=== PATIENT | female | born 1965 | race Two or more races ===

== ENCOUNTER 2023-09-10 09:51 | Outpatient (REF) | payer OTHER, SELFPAY ==
--- NOTE | 2023-09-10 10:53 | MHC.AU.HA3 ---
Hearing Instrument Follow-Up- Binaural Date of Visit: 09/10/23 Right Ear: Roland, Model, Color, Serial Number: Oticon OPN 2 miniRITE SN: [id number] Barrow Worker Repair Warranty: 02/12/2021 Barrow Worker Loss and Damage Warranty: 02/13/2020 Battery Size: 312 Roof Fitter/Slim Tube: 2/85 Earmold/Dome/CShell/SlimTip:Acrylic Canal Lock MicroMold SN: [id number] Type of Wax Guard: ProWax on MicroMold; miniFit on administrative coordinator Dispensed By: [facility] Date of Fitting: Per Oticon, December 2017 Left Ear: Roland, Model, Color, Serial Number: Oticon OPN 2 miniRITE SN: [id number] Barrow Worker Repair Warranty: 02/12/2021 Barrow Worker Loss and Damage Warranty: 02/13/2020 Battery Size: 312 Roof Fitter/Slim Tube: 2/85 Earmold/Dome/CShell/SlimTip: Acrylic Canal Lock MicroMold SN: [id number] Type of Wax Guard: ProWax on MicroMold; miniFit on administrative coordinator Dispensed By: [facility] Date of Fitting: Per Oticon, December 2017 Follow-Up Summary: Portia was a previous patient at [facility] and the audiology clinic at [facility]. She has decided to transfer care here. She is hoping to pursue new hearing aids due to the age of her current pair. Batteries reportedly only lasting 3-4 days and left hearing aid has intermittent static. Discussed process, starting with doctor's order from PCP for hearing test. In the meantime, cleaned both hearing aids and ear molds. Replaced four wax guards (two on molds, two on receivers). Vacuumed microphones. Ran through dehumidifier. Listening check demonstrated hearing aids amplifying clearly - no static noted. Portia will request doctor's order for updated hearing test and previous records will be requested from [facility]. Recommendations: Hearing instrument follow-up or maintenance as needed. Please contact our clinic with any questions or concerns. Diagnosis Code(s): Primary Diagnosis: H90.3 Bilateral Sensorineural Hearing Loss Signature: Provider: Sherif Edwards, [facility]
== END 2023-09-10 09:52 | disposition home or self-care (01) ==
LOC: HO.HAP 09:51
PROVIDERS: Visit Provider Internal Medicine
DX: Z46.1 Encounter for fitting and adjustment of hearing aid (principal); H90.3 Sensorineural hearing loss, bilateral
CPT/HCPCS: 92593; 99499

== ENCOUNTER 2023-12-10 09:35 | Outpatient (REF) | payer OTHER, SELFPAY ==
[2023-12-10 09:57] LABS: MANUAL DIFF FLAG NO
[2023-12-10 10:13] LABS: Basophils Percent Auto 0.2 % (0-2); Eosinophils Absolute Auto 0.2 X10*3/uL (0.0-0.4); Eosinophils Percent Auto 3.3 % (0-4); Hematocrit 43.4 % (37.0-47.0); Hemoglobin 14.7 g/dl (12.0-16.0); Imm Gran Abs Auto 0.03 X10*3/uL (0.00-0.03); Imm Gran Pct Auto 0.5 % (0.0-0.4); Lymphocytes Absolute Auto 1.5 X10*3/uL (1.2-4.9); Lymphocytes Percent Auto 25.3 % (20-40); Mean Corpuscular HGB Conc 33.9 g/dl (31.0-35.0); Mean Corpuscular Hemoglobin 30.1 pg (27.0-33.0); Mean Corpuscular Volume 88.9 fL (80.0-98.0); Monocytes Absolute Auto 0.6 X10*3/uL (0.1-1.2); Monocytes Percent Auto 9.4 % (2-11); Neutrophils Absolute Auto 3.7 x10*3/uL (2.0-8.3); Neutrophils Percent Auto 61.3 % (45-73); Platelet Count 224 X10*3/uL (160-400); Red Blood Count 4.88 X10*6/uL (4.20-5.50); Red Cell Distribution Width 13.2 % (11.0-16.0)
[2023-12-10 11:09] LABS: Anion Gap 10 (12-20); Blood Urea Nitrogen 13 mg/dL (9-16); Calcium 10.4 mg/dL (8.4-10.2); Carbon Dioxide 25 mmol/L (22-29); Chloride 109 mmol/L (96-108); Estimated Glomerular Filt Rate > 60; Glucose Random 155 mg/dL (60-115); Potassium 4.2 mmol/L (3.3-5.1); Sodium 140 mmol/L (135-145)
[2023-12-10 11:28] LABS: T4 Thyroxine 5.6 ug/dL (4.5-12.0); Thyroid Stimulating Hormone 2.02 uIU/mL (0.32-4.0)
[2023-12-10 11:36] LABS: Folate 9.5 ng/mL (> or = 4.0); Vitamin B12 443 pg/mL (200-900)
== END 2023-12-10 09:36 | disposition home or self-care (01) ==
LOC: HO.LAB 09:35
PROVIDERS: Visit Provider Registered Nurse
DX: G31.84 Mild cognitive impairment of uncertain or unknown etiology (principal)
CPT/HCPCS: 36415; 80048; 82607; 82746; 84436; 84443; 85025

== ENCOUNTER 2023-12-16 15:33 | Outpatient (REF) | payer OTHER, SELFPAY ==
--- NOTE | 2023-12-17 09:57 | MHC.AU.HA1 ---
Hearing Aid Evaluation Date of Visit: 12/16/23 Historical Information: Description of Hearing: Borderline normal sloping to moderately severe sensorineural hearing loss, bilateral. Current personal amplification information, if applicable: Oticon Opn2 miniRITE 312 with acrylic earmolds. Summary: Seen for evaluation. Current hearing aids are six years old. Has been having trouble with static and intermittent function, not hearing as well as she should be with them anymore. Evaluation shows stable hearing. New technology recommended. Pt. would like to be able to connect with her iPhone for phone calls. Interested in rechargeable, has been frustrated with shorter battery life as her hearing aids have aged. Would like to continue using same style of earmold. Impressions taken without incidence Au. Hearing Aid Prescription: Based on the individual?s shared listening needs, communication environments, dexterity, desire for connectivity, and personal preferences, the following prescription for amplification has been made: Right ear: Make, Model, Color: Oticon Real 2 R, chroma beige Battery Size: Rechargeable Disposal Worker/Slim Tube: 2/85 Type of Earmold/Dome/CShell/SlimTip: Acrylic Canal Lock MicroMold Left ear: Make, Model, Color: Oticon Real 2 R, chroma beige Battery Size: Rechargeable Disposal Worker/Slim Tube: 2/85 Type of Earmold/Dome/CShell/SlimTip: Acrylic Canal Lock MicroMold Plan of Care: Patient wishes to purchase hearing aids as prescribed Action Taken/Action Needed: Earmold Impressions Taken Medical Clearance to be requested from PCP/ENT Hearing Instrument Fitting to be scheduled when materials arrive Primary Diagnosis: H90.3 Bilateral Sensorineural Hearing Loss Signature: Provider: Sherif Smith, [facility]
== END 2023-12-16 15:34 | disposition home or self-care (01) ==
LOC: HO.SH 15:33
PROVIDERS: Visit Provider Internal Medicine
DX: Z01.118 Encounter for examination of ears and hearing with other abnormal findings (principal); Z46.1 Encounter for fitting and adjustment of hearing aid; H90.3 Sensorineural hearing loss, bilateral
CPT/HCPCS: 92557; 92591; V5275

== ENCOUNTER 2024-01-16 15:11 | Outpatient (REF) | payer OTHER, SELFPAY ==
--- NOTE | ~2024-01-16 | CT_ITS ---
CT head/brain wo IV con CLINICAL INFORMATION: Reason for Exam MCI COMPARISON: No prior CT scan available for comparison. TECHNIQUE: Department standard protocol. This CT examination was performed using dose optimization techniques as appropriate, variously including the following: *Automated exposure control *Adjustment of mA and/or kV according to patient size (this includes techniques or standardized protocols for targeted exams where dose is matched to indication/reason for exam; i.e. extremities or head) *Use of iterative reconstruction technique DLP: 707 mGy-cm FINDINGS: CEREBRAL HEMISPHERES: There is no evidence of intra-axial or extra-axial mass, hemorrhage or acute infarct. BRAIN PARENCHYMA: Normal avalos-white matter differentiation. SUBDURAL SPACE: No bleed. BASAL GANGLIA AND PINEAL GLAND: Unremarkable VENTRICLES: Symmetric and normal in size. CEREBELLUM AND BRAINSTEM: No space-occupying mass, hemorrhage or acute infarct. CEREBELLOPONTINE ANGLES: No lesion found. ORBITS: No intraorbital mass. VESSELS: Unremarkable SKULL BASE: Unremarkable INCLUDED SINUSES AT SKULL BASE: Clear SKULL AND SKIN: No fracture or bone lesion found. CT/CT head/brain wo IV con IMPRESSION: No CT evidence of intracranial space-occupying mass, bleed or infarct.
== END 2024-01-16 15:12 | disposition home or self-care (01) ==
LOC: HO.CT 15:11
PROVIDERS: Visit Provider Registered Nurse
DX: G31.84 Mild cognitive impairment of uncertain or unknown etiology (principal)
CPT/HCPCS: 70450

== ENCOUNTER 2024-02-06 10:03 | Outpatient (REF) | payer OTHER, SELFPAY ==
--- NOTE | 2024-02-06 12:39 | MHC.AU.HA2 ---
Hearing Instrument Fitting- Adult- Binaural Date of Visit: 02/06/24 Hearing Instruments Dispensed: Right Ear: Make, Model, Color, Serial Number: Oticon Real 2 R, chroma beige S#[id number] [address] Justice Repair Warranty: 02/21/[address] [employer] Loss and Damage Warranty: 02/21/2027 [facility] Service Plan: 02/05/25 Battery Size: Rechargeable Die Stamping Press Operator/Slim Tube: 2/85 Earmold/Dome/CShell/SlimTip: RITE mold hard minifit MicroMold S#[id number] Warranty 05/09/2024 Type of Wax Guard: ProWax on MicroMold; miniFit on railroad dispatcher Left Ear: Make, Model, Color, Serial Number: Oticon Real 2 R, chroma beige S#[id number] [address] Justice Repair Warranty: 02/21/[address] Loss and Damage Warranty: 02/21/2027 [facility] Service Plan: 02/05/25 Battery Size: Rechargeable Die Stamping Press Operator/Slim Tube: 2/85 Earmold/Dome/CShell/SlimTip: RITE mold hard minifit S#[id number] Warranty 05/09/2024 Type of Wax Guard: ProWax on MicroMold; miniFit on railroad dispatcher Accessories/Assistive Technology: Oticon minirite instructional design technologist S#[id number] Warranty 02/21/2027 Summary of Fitting: Fit with and oriented to binaural Oticon Real 2 R HAs with acrylic canal lock micromolds. Verified to [facility] Adult targets. Feedback ran. Reviewed charging, maintenance, precautions. Previous user. Paired with iPhone. Cleaned her old hearing aids and earmolds, changed wax guards, listening check positive. Recommendations: Recommendations: Hearing instrument care and maintenance were discussed and practiced. The instrument(s) were paired to the patient's smartphone. A hearing instrument follow-up was scheduled. Diagnosis Code(s): Primary Diagnosis: H90.3 Bilateral Sensorineural Hearing Loss Signature: Provider: Sherif Smith, [facility]
== END 2024-02-06 10:04 | disposition home or self-care (01) ==
LOC: HO.HAP 10:03
PROVIDERS: Visit Provider Internal Medicine
DX: Z46.1 Encounter for fitting and adjustment of hearing aid (principal); H90.3 Sensorineural hearing loss, bilateral
CPT/HCPCS: V5011; V5020; V5160; V5261; V5264

== ENCOUNTER 2024-02-20 09:44 | Outpatient (REF) | payer OTHER, SELFPAY ==
--- NOTE | 2024-02-20 13:13 | MHC.AU.HA3 ---
Hearing Instrument Follow-Up- Binaural Date of Visit: 02/20/24 Right Ear: Make, Model, Color, Serial Number: Oticon Real 2 R, chroma beige S#[id number] [employer]employment [employer] Hearing Officer Repair Warranty: 02/21/2027 Unemployment [employer] Hearing Officer Loss and Damage Warranty: 02/21/2027 [facility] Service Plan: 02/05/25 Battery Size: Rechargeable Mattress And Boxsprings Supervisor/Slim Tube: 2/85 Earmold/Dome/CShell/SlimTip:RITE mold hard minifit MicroMold S#[id number] Warranty 05/09/2024 Type of Wax Guard: ProWax Dispensed By: [facility] Date of Fittin02/06/24 Left Ear: Make, Model, Color, Serial Number: Oticon Real 2 R, chroma beige S#[id number] Unemployment Insurance Hearing Officer Repair Warranty: 02/21/2027 Unemployment Insurance Hearing Officer Loss and Damage Warranty: 02/21/2027 [facility] Service Plan: 02/05/25 Battery Size: Rechargeable Mattress And Boxsprings Supervisor/Slim Tube: 2/85 Earmold/Dome/CShell/SlimTip: RITE mold hard minifit S#[id number] Warranty 05/09/2024 Type of Wax Guard: ProWax on MicroMold Dispensed By: [facility] Date of Fittin02/06/24 Follow-Up Summary: Here for follow up. Reports that she is generally happy with the new hearing aids. Concerns are- would like them louder overall, own voice still feels different than she is used to, boomy, in her own head. Increased gain 3 steps overall. Increased gain 2 dB for soft and moderate low frequencies as recommended by Oticon for own voice complaint. Improvement reported. Portia noted these slim tips aren't as long as her old ones. She reports they stay in her ears and she hasn't had any issues with feedback. Advised if she prefers the fit of her old ones we could send these out with new impressions while in remake warranty period. She is going to take some time to continue getting used to these, scheduled additional follow up so we can address any issues before end of remake warranty period if needed. Recommendations: Recommendations: An additional follow-up was scheduled to monitor progress. Diagnosis Code(s): Primary Diagnosis: H90.3 Bilateral Sensorineural Hearing Loss Signature: Provider: Sherif Smith, [facility]
== END 2024-02-20 09:45 | disposition home or self-care (01) ==
LOC: HO.HAP 09:44
PROVIDERS: Visit Provider Internal Medicine
DX: Z13.89 Encounter for screening for other disorder (principal)

== ENCOUNTER 2024-04-16 08:29 | Outpatient (REF) | payer OTHER, SELFPAY ==
--- NOTE | 2024-04-16 09:04 | MHC.AU.HA3 ---
Hearing Instrument Follow-Up- Binaural Date of Visit: 04/16/24 Right Ear: Make, Model, Color, Serial Number: Oticon Real 2 R, chroma beige S#[id number] Pharmacy Consultant Repair Warranty: 02/21/2027 Pharmacy Consultant Loss and Damage Warranty: 02/21/2027 [facility] Service Plan: 02/05/25 Battery Size: Rechargeable Elementary Classroom Teacher/Slim Tube: 285 Earmold/Dome/CShell/SlimTip:RITE mold hard minifit MicroMold S#[id number] Warranty 05/09/2024 Type of Wax Guard: ProWax Dispensed By: [facility] Date of Fittin02/06/24 Left Ear: Make, Model, Color, Serial Number: Oticon Real 2 R, chroma beige S#[id number] Pharmacy Consultant Repair Warranty: 02/21/2027 Pharmacy Consultant Loss and Damage Warranty: 02/21/2027 [facility] Service Plan: 02/05/25 Battery Size: Rechargeable Elementary Classroom Teacher/Slim Tube: 285 Earmold/Dome/CShell/SlimTip: RITE mold hard minifit S#[id number] Warranty 05/09/2024 Type of Wax Guard: ProWax on MicroMold Dispensed By: [facility] Date of Fittin02/06/24 Follow-Up Summary: Here for follow up. Accompanied by her son today. Reports things feel too loud since last adjustment, gets tinny distortion with some speech. Still feels earmolds are too short. Adjusted gain re: complaints. Impressions taken for earmold remakes without incidence Au. Impressions in hold drawer. Portia will return next week to have her old slim tips put on these aids so we can send slim tips out for remake. Must get to [employer] by 05/09. Recommendations: Recommendations (Other): Return as scheduled. Diagnosis Code(s): Primary Diagnosis: H90.3 Bilateral Sensorineural Hearing Loss Signature: Provider: Sherif Smith, [facility]
== END 2024-04-16 08:30 | disposition home or self-care (01) ==
LOC: HO.HAP 08:29
PROVIDERS: Visit Provider Internal Medicine
DX: Z13.89 Encounter for screening for other disorder (principal)

== ENCOUNTER 2024-04-30 10:15 | Outpatient (REF) | payer OTHER, SELFPAY ==
--- NOTE | 2024-04-30 11:16 | MHC.AU.HA3 ---
Hearing Instrument Follow-Up- Binaural Date of Visit: 04/30/24 Right Ear: Make, Model, Color, Serial Number: Oticon Real 2 R, chroma beige S#[id number] Lime Sludge Mixer Repair Warranty: 02/21/2027 Lime Sludge Mixer Loss and Damage Warranty: 02/21/2027 [facility] Service Plan: 02/05/25 Battery Size: Rechargeable Metal Cut Off Saw Tender/Slim Tube: 2/85 Earmold/Dome/CShell/SlimTip:RITE mold hard minifit MicroMold S#[id number] Warranty 05/09/2024 Type of Wax Guard: ProWax Dispensed By: [facility] Date of Fittin02/06/24 Left Ear: Make, Model, Color, Serial Number: Oticon Real 2 R, chroma beige S#[id number] Lime Sludge Mixer Repair Warranty: 02/21/2027 Lime Sludge Mixer Loss and Damage Warranty: 02/21/2027 [facility] Service Plan: 02/05/25 Battery Size: Rechargeable Metal Cut Off Saw Tender/Slim Tube: 285 Earmold/Dome/CShell/SlimTip: RITE mold hard minifit S#[id number] Warranty 05/09/2024 Type of Wax Guard: ProWax on MicroMold Dispensed By: [facility] Date of Fittin02/06/24 Follow-Up Summary: Portia is here with her old micro molds to be put on her new hearing aids while she waits for earmold remake. Portia noted aids feel imbalance, noting that her left feels blocked. Increased gain slightly for left aid, improvement reported. Impressions were taken at last visit, sending impressions and molds to [employer] for remake. Recommendations: Recommendations: Patient will be contacted when materials have arrived. Diagnosis Code(s): Primary Diagnosis: H90.3 Bilateral Sensorineural Hearing Loss Signature: Provider: Sherif Smith, [facility]
== END 2024-04-30 10:16 | disposition home or self-care (01) ==
LOC: HO.HAP 10:15
PROVIDERS: Visit Provider Internal Medicine
DX: Z13.89 Encounter for screening for other disorder (principal)

== ENCOUNTER 2024-05-27 08:30 | Outpatient (REF) | payer OTHER, SELFPAY ==
--- NOTE | 2024-05-27 10:27 | MHC.AU.HA3 ---
Hearing Instrument Follow-Up- Binaural Date of Visit: 05/27/24 Right Ear: Make, Model, Color, Serial Number: Oticon Real 2 R, chroma beige S#[id number] And Drying Supervisor Cooking Casing Repair Warranty: 02/21/2027 And Drying Supervisor Cooking Casing Loss and Damage Warranty: 02/21/2027 [facility] Service Plan: 02/05/25 Battery Size: Rechargeable Webbing Weaver/Slim Tube: 285 Earmold/Dome/CShell/SlimTip:RITE mold hard minifit MicroMold S#[id number] Warranty 05/09/2024 Type of Wax Guard: ProWax Dispensed By: [facility] Date of Fittin02/06/24 Left Ear: Make, Model, Color, Serial Number: Oticon Real 2 R, chroma beige S#[id number] And Drying Supervisor Cooking Casing Repair Warranty: 02/21/2027 And Drying Supervisor Cooking Casing Loss and Damage Warranty: 02/21/2027 [facility] Service Plan: 02/05/25 Battery Size: Rechargeable Webbing Weaver/Slim Tube: 285 Earmold/Dome/CShell/SlimTip: RITE mold hard minifit S#[id number] Warranty 05/09/2024 Type of Wax Guard: ProWax on MicroMold Dispensed By: [facility] Date of Fittin02/06/24 Follow-Up Summary: Dispensed remake earmolds. Improved fit reported. When taking Portia's old earmolds off of her new hearing aids the gasket that holds the telegraph office manager in the mold came apart on the right one. Likely due to age and deterioration of materials. Recommended ordering a replacement pair of earmolds to go on her back up aids. Ordered duplicates of her back up molds. Recommendations: Recommendations: Patient will be contacted when materials have arrived. Recommendations (Other): Remind Portia to bring her back up aids to the EMF appointment. Diagnosis Code(s): Primary Diagnosis: H90.3 Bilateral Sensorineural Hearing Loss Signature: Provider: Sherif Smith, [facility]
== END 2024-05-27 08:31 | disposition home or self-care (01) ==
LOC: HO.HAP 08:30
PROVIDERS: Visit Provider Internal Medicine
DX: Z13.89 Encounter for screening for other disorder (principal)

== ENCOUNTER 2024-06-07 10:21 | Outpatient (REF) | payer OTHER, SELFPAY ==
--- NOTE | 2024-06-07 11:29 | MHC.AU.HA3 ---
Hearing Instrument Follow-Up- Binaural Date of Visit: 06/07/24 Right Ear: Make, Model, Color, Serial Number: Oticon Real 2 R, chroma beige S#[id number] Lead Business Systems Analyst Repair Warranty: 02/21/2027 Lead Business Systems Analyst Loss and Damage Warranty: 02/21/2027 [facility] Service Plan: 02/05/25 Battery Size: Rechargeable Product Lister/Slim Tube: 2/85 Earmold/Dome/CShell/SlimTip:RITE mold hard minifit MicroMold S#[id number] Warranty 09/15/2024 Type of Wax Guard: ProWax Dispensed By: [facility] Date of Fittin02/06/24 Left Ear: Make, Model, Color, Serial Number: Oticon Real 2 R, chroma beige S#[id number] Lead Business Systems Analyst Repair Warranty: 02/21/2027 Lead Business Systems Analyst Loss and Damage Warranty: 02/21/2027 [facility] Service Plan: 02/05/25 Battery Size: Rechargeable Product Lister/Slim Tube: 285 Earmold/Dome/CShell/SlimTip: RITE mold hard minifit S#[id number] Warranty 09/15/2024 Type of Wax Guard: ProWax on MicroMold Dispensed By: [facility] Date of Fittin02/06/24 Follow-Up Summary: Dispensed earmolds for Portia's back up hearing aids. Good fit reported. Portia reports the remake earmolds on her Real hearing aids are working well for her. Recommendations: Recommendations: Hearing instrument follow-up or maintenance as needed. Diagnosis Code(s): Primary Diagnosis: H90.3 Bilateral Sensorineural Hearing Loss Signature: Provider: Sherif Smith, [facility]
== END 2024-06-07 10:22 | disposition home or self-care (01) ==
LOC: HO.HAP 10:21
PROVIDERS: Visit Provider Internal Medicine
DX: Z46.1 Encounter for fitting and adjustment of hearing aid (principal); H90.3 Sensorineural hearing loss, bilateral
CPT/HCPCS: V5264

== ENCOUNTER 2025-03-16 10:03 | Outpatient (AMB) | payer OTHER, SELFPAY ==
--- NOTE | 2025-03-16 10:07 | MHC.OFFVIS ---
Intake Visit Reasons: 6month migraine Allergies codeine Allergy (Unknown, Verified 03/16/25 10:08) Unknown Medication List - Last Reconciled 03/16/25 by Lorena Coronado CNP amitriptyline 10 mg PO BEDTIME dulaglutide (Trulicity) 0.75 mg subcut QWEEK lisinopril 5 mg PO DAILY metformin ER 500 mg PO DAILY topiramate 100 mg PO DAILY HPI Comments Details: She was doing okay. Headaches have been okay. May get headache if she misses dose of medication. Memory has been stable, can be forgetful at times. Puts reminders in phone and writes out shopping list. Uses GPS when driving to places she goes infrequently for security reasons, has not gotten lost. 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 Sleep was okay, using CPAP. She was under some stress. She has 2 sons, an almost 18-year-old who is a senior in high school and 20-year-old. Noticed she was becoming more forgetful starting around 2021, needing to keep lists and having to write things down. Can go months without migraines. She was getting frequent migraine headaches, however, if she takes her topiramate 100 mg a day regularly she does not get the migraine headache. If she skips it, she starts to get some withdrawal and tingling in the headaches come back. In addition to the migraines, she has almost daily headaches several times a day with throbbing ARTHUR in the temples lasting 2 hrs. Uses Tylenol. These are more tension-type headaches. She uses CPAP at night for obstructive sleep apnea and sleeps through the night. No triggers identified. [facility] Medical History (Updated 03/16/25 @ 10:12 by Lorena Coronado CNP) Diabetes Vertigo JOSE on CPAP Hypertension Review of Systems Const Denies chills, Denies daytime sleepiness, Denies difficulty sleeping, Denies fatigue, Denies fever(s), Denies frequent falls, Reports headache(s), Denies increased appetite, Denies poor appetite, Denies snoring, Denies weakness, Denies weight gain and Denies weight loss Eyes Denies loss of vision ENT Denies vertigo, Denies dizziness, Reports headache(s) and Reports neck pain Card Denies chest pain at rest, Denies chest pain with activity, Denies syncope, Denies leg edema, Denies palpitations, Denies dyspnea and Denies dyspnea on exertion Resp Denies cough, Denies dyspnea, Denies dyspnea on exertion and Denies snoring GI Denies abdominal pain, Denies constipation, Denies heartburn, Denies diarrhea and Denies nausea Denies urinary frequency, Denies urinary incontinence and Denies urinary urgency Musc Denies abnormal gait, Reports back pain, Reports myalgias, Denies arthralgias, Reports neck pain, Denies numbness and Denies tingling Neuro Denies abnormal gait, Denies vertigo, Denies dizziness, Denies syncope, Denies frequent falls, Reports headache(s), Denies lack of coordination, Denies loss of vision, Reports memory loss, Denies numbness, Denies Other visual disturbances, Denies restless legs, Denies seizure-like activity, Denies tingling, Denies paresthesias, Denies tremor(s) and Denies weakness Psych Denies anxiety, Denies depression, Denies auditory hallucinations, Reports memory loss and Denies visual hallucinations Endo Denies fatigue and Denies palpitations Physical Exam Const Other: General Appearance:? normal, in no acute distress. Heart:? S1, S2 normal, no murmurs. Lungs:? clear anteriorly and posteriorly. Musculoskeletal:? normal. Extremities:? no edema. Psych:? alert, as below. Neuro Other: Abnormal Neurological Findings:?MMSE 29/30. Mental Status: alert, as below. Cranial Nerves: Pupils are equal, round, and reactive to light. External ocular muscles are intact. Visual singh are full, no ptosis. Face is symmetrical, no facial weakness or droop. Facial sensations are normal. Tongue protrudes in midline. Palate elevates symmetrically. Shoulder shrugging is normal Motor Examination: Normal muscle tone, bulk and strength. No atrophy or fasciculations. No drift of the extended upper extremities. DTR 2+. Plantars are flexor. Sensory Exam: Normal light touch, temperature, pinprick, vibration, and joint-position sensations. Rhomberg sign is absent. Coordination: No ataxia. No titubation. Gait Exam: Within normal limits. Cerebellar Signs: [id number] is okay. Extrapyramidal System: No tremor, rigidity with normal facial expressions. No bradykinesia. No bradyphrenia. Normal arm swing and posture. No propulsion or retropulsion. Speech: Normal. MMSE Level of Consciousness: Alert. Orientation: Knows correct year, month, date, day and season. Knows correct city, county and state. Knows correct location and floor. Registration: Able to register 3 objects. Attention: Serial 7's performed accurately to 65 (with some difficulty). Recall: Able to recall 2 out of 3 objects. Language: Normal spontaneous speech, fluency, repetition, naming, comprehension, reading, and writing. Total Score: 29/30. Assessment & Plan Assessment & Plan (1) Migraine: Code(s): G43.909 - Migraine, unspecified, not intractable, without status migrainosus Category: Medical Qualifiers: Migraine type: unspecified Status migrainosus presence: without status migrainosus Intractability: not intractable Qualified Code(s): G43.909 - Migraine, unspecified, not intractable, without status migrainosus Plan: Continue topiramate 100mg 1 tablet at bedtime. (2) Tension headache: Code(s): G44.209 - Tension-type headache, unspecified, not intractable Category: Medical Plan: Continue amitriptyline 10mg 1 tablet at bedtime. (3) MCI (mild cognitive impairment): Code(s): G31.84 - Mild cognitive impairment of uncertain or unknown etiology Category: Medical Plan: Stay physically and socially active. Medications: New topiramate 100 mg PO BEDTIME 90 tabs 1RF 90 days amitriptyline 10 mg PO BEDTIME 90 tabs 1RF 90 days Coding Level of Care Code Est Pt Level 4 (50101) Diagnoses Migraine without status migrainosus, not intractable, unspecified migraine type G43.909 Migraine type: unspecified Status migrainosus presence: without status migrainosus Intractability: not intractable Tension headache G44.209 MCI (mild cognitive impairment) G31.84
--- OUTSIDE RECORDS SUMMARY | 2025-03-16 12:17 | XMS_ITS | Clinical Summary ---
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 4 Active loratadine (CLARITIN) 10 mg tablet Take 1 tablet (10 mg total) by mouth 1 (one) time each day. 3 Active amitriptyline (ELAVIL) 10 mg tablet Take 1 tablet (10 mg total) by mouth at bedtime. 1 Active topiramate (TOPAMAX) 100 mg tablet at bedtime. 0 Active Trulicity 0.75 mg/0.5 mL pen injector injection INJECT 0.5 ML (0.75 MG) SUBCUTANEOUSLY EVERY 7 DAYS 12 mL 1 5 Active lisinopriL (PRINIVIL,ZEST RIL) 5 mg tablet Take 1 tablet by mouth once daily 90 tablet 5 Active metFORMIN XR (GLUCOPHAGE-XR ) 500 mg 24 hr tablet Take 1 tablet (500 mg total) by mouth 1 (one) time each day. Do not crush, chew, or split. 90 each 1 Active Active Problems Problem Noted Date Diagnosed Date Diabetes mellitus type 2 wit h neurological manifestations ([facility] [place], [facility] V28) 06/06/2024 Elevated LFTs 03/12/2023 Severe obesity (BMI 35.0-39. 9) with comorbidity ([facility] V24, [facility] V28) 04/15/2022 Hemorrhoids 12/17/2021 Microalbuminuria 12/14/2021 Trigger finger, right middle finger 11/09/2021 Rotator cuff tendinitis, left 11/09/2021 Acute recurrent cystitis 04/23/2021 Overview (05/04/2024): [facility] urology JOSE (obstructive sleep apnea) 04/25/2017 Uses hearing aid 06/26/2015 Migraines 09/19/2014 DM (diabetes mellitus), type 2 with renal complications ([facility] V24, [facility] V28) 05/31/2013 BPPV (benign paroxysmal positional vertigo) 10/22 Allergic rhinitis 11/25/2005 Bilateral carpal tunnel syndrome 10/16/2005 History of kidney stones Resolved Problems Problem Noted Date Diagnosed Date Resolved Date Hypertensive disorder 09/18/20102023 Encounters Date Type Department Care Team Description 02/01/2025 Telephone Adult Medicine [address] [phone] Phyllis Mcintyre LPN 01/13/2025 9:45 AM EDT Office Visit Adult Medicine [address] [phone] Mago Manriquez MD Type 2 diabetes mellitus with diabetic microalbuminuria, without long-term current use of insulin ([facility] V24, [facility] V28) (Primary Dx); Microalbuminuria; Allergic rhinitis due to other allergic trigger, unspecified seasonality 01/10/2025 Lab Requisition [facility] - Main Lab [address] [facility] [place] [address] Poli Wayne MD Urinary tract infection, site not specified; Acute cystitis with hematuria from Last 3 Months Immunizations Name Administration Dates Next Due Influenza Quadravalent, MDCK , 0.5ml, preservative free (Flucelvax) 6mo and older 04/15/2022 Influenza Quadravalent, MDCK , 0.5ml, with preservative (Flucelvax) 6mo and older 04/03/2018,04/25/2017 Influenza Quadrivalent, 0.5m l, preservative free (Fluarix; FluLaval; Fluzone) ages 6mo and older (Afluria) 3yo and older 05/05/2023,04/24/2021,02/25/2020,04/19 Influenza trivalent, recombi nant, 0.5mL, preservative free (Flublok) 9yo and older 05/12/2024 Influenza trivalent, with pr eservative (Fluzone; Afluria) 6mo and older 04/04/2016,03/03/2015,05/11/2014,04/20,03/03/2012,07/04/2011,03/30/2007 Influenza, Unspecified 04/23/2021 Pneumococcal polysaccharide 23 valent (Pneumovax 23) 2yo and older 12/13/2021 Td Tetanus diptheria (Tdvax) 7yo and older 12/13/2021 Td, Unspecified 12/03/2000 Tdap Tetanus diptheria acell ular pertussis (Boostrix; Adacel) 7yo and older 12/04/2010,12/03/2000 Zoster recombinant (Shingrix ) 19yo and older 04/13/2024,02/12/2024 Surgical History Surgery Date Site/Laterality Comments SECTION CHOLECYSTECTOMY BREAST LUMPECTOMY WRIST SURGERY 05/22/12 left wrist arthro and pinning BREAST BIOPSY Left lt breast bx neg SCREENING MAMMOGRAM 10/05/2024 Bilateral TONSILLECTOMY COLONOSCOPY 11/16/2024 Medical History Medical History Date Comments Carpal tunnel syndrome 10/16/2005 Historical Medical DX 02/16/2002 ASCUS on P ap smear HTN (hypertension) Uses hearing aid 06/26/2015 Acute recurrent cystitis 04/23/2021 [facility] urology History of kidney stones 04/23/2021 Microalbuminuria 12/14/2021 Hyperlipidemia Elevated liver enzymes DM (diabetes mellitus), type 2 with renal complications ([facility] [place], [facility] V28) 05/31/2013 Hemorrhoids 12/17/2021 Severe obesity (BMI 35.0-39. 9) with comorbidity ([facility] V24, [facility] V28) 04/15/2022 Migraines 09/19/2014 JOSE (obstructive sleep apnea) 04/25/2017 Trigger finger, right middle finger 11/09/2021 Allergic rhinitis 11/25/2005 Diabetes mellitus type 2 wit h neurological manifestations ([facility] V24, [facility] V28) 06/06/2024 Migraine GERD (gastroesophageal reflux disease) Family History Medical History Relation Name Comments Hypertension Brother 1 Bipolar disorder Brother 2 coma since 2012, cardiac arrest after tylenol OD Diabetes Father HTN heart problem Maternal Grandfather Diabetes Maternal Grandmother HTN Diabetes Mother HTN, migraine, osteoporosis, thyroid issue old age Paternal Grandfather old age Paternal Grandmother Hypertension Sister 1 2 sisters Thyroid disease Sister 2 2 sisters w/ thyroid disorder CABG Uncle 1 Stroke Uncle 2 Breast cancer Neg Hx Colon cancer Neg Hx Ovarian cancer Neg Hx Uterine cancer Neg Hx Relation Name Status Comments Brother 1 Alive Brother 2 Alive Father Alive Maternal Grandfather (Age 80s) Maternal Grandmother (Age 92) Mother Alive Paternal Grandfather (Age 90s) Paternal Grandmother (Age 90s) Sister 1 Alive Sister 2 Uncle 1 Uncle 2 Social History Tobacco Use Types Packs/Day Years Used Date Smoking Tobacco: Never Smokeless Tobacco: Never Tobacco Cessation:Counseling Given: Not Answered Alcohol Use Standard Drinks/Week Comments Yes 0 (1 standard drink = 0.6 oz pur e alcohol) Housing Instability Answer Date Recorde d Are you worried that in the next 2 months you may not have stable housing? No 07/04/2024 Food Access & Nutrition Answer Date Rec orded Do you have access to a vari ety of food including fruits and vegetables? Yes 07/04/2024 Access to Healthcare Answer Date Record ed Within the last 3 months, marya w many times did you visit the emergency department for your medical care? 1 07/04/2024 Health Literacy Answer Date Recorded How often do you need to hav e someone help you when you read instructions, pamphlets, or other written material from your doctor or pharmacy? Never 07/04/2024 Caregiver: How often do you need to have someone help you when you read instructions, pamphlets, or other written material from your doctor or pharmacy? Not on file 07/04/2024 Transportation Answer Date Recorded Has the lack of transportati on kept you from meetings, work, or from getting things needed for daily living? No Has the lack of transportati on kept you from medical appointments or from getting medications? No 07/04/2024 Social Isolation Answer Date Recorded How often do you feel lonely or isolated from th ose around you? Never 07/04/2024 Food Risk Answer Date Recorded Within the past 12 months we worried whether our food would run out before we got money to buy more. Never true 07/04/2024 Within the past 12 months th e food we bought just didn't last and we didn't have money to get more. Never true 07/04/2024 Dependent Care Answer Date Recorded Do you need help finding or paying for care for your loved ones. For example, vocational childcare teacher or elderly care for an older adult? No 07/04/2024 Education Answer Date Recorded Do you think completing more education or training, like finishing a GED, going to college, or learning a trade, would be helpful for you? N/A 07/04/2024 Employment and Income Answer Date Recor ded During the last four weeks, have you been actively looking for work? Yes 07/04/2024 Living Situation Answer Date Recorded What is your living situation? 0 07/04/2024 Interpersonal Safety Answer Date Record ed Physical Abuse 11/16/2024 Verbal Abuse 11/16/2024 Comments No Sex and Gender Information Value Date Recorded Sex Assigned at Female 05/17/2024 4:31 PM EST Legal Sex Female 5:21 AM EST Gender Identity Female 05/17/2024 4:31 PM EST Sexual Orientation Straight 05/17/2024 4: 31 PM EST Obstetrics History Para Term AB IAB SAB Ectopic Multiple Livin g Live Births 2 2 2 2 2 Date Outcome GA Total Labor Labor/2nd/3rd Weight Sex Type Anes PTL Sandra A1 A5 Name Clin 2003 Term 39w 0d 3487 g (123 oz) M CS-Un spec Spinal Livin g Rafal Rule Dr.Re ncus Delivery Location:[facility] Comments:C/S breech pr esentation 2006 Term 39w 0d 3657 g (129 oz) M CS-Un spec Spinal Livin g Slade Lora s Delivery Location:[facility] Last Filed Vital Signs Vital Sign Reading Time Taken Comments Blood Pressure 100/60 01/13/2025 9:45 AM EDT Pulse 76 01/13/2025 9:45 AM EDT Temperature 36.2 C (97.2 F) 01/13/2025 9:45 AM EDT Respiratory Rate 12 11/16/2024 10:58 AM EDT Oxygen Saturation 98% 01/13/2025 9:45 AM EDT Inhaled Oxygen Concentration - - Weight 78.7 kg (173 lb 8 oz) 01/13/2025 9:45 AM EDT Height 152.4 cm (5') 01/13/2025 9:45 AM EDT Body Mass Index 33.88 01/13/2025 9:45 AM EDT Plan of Treatment Upcoming Encounters Date Type Department Care Team (Late st Contact Info) Description 04/15/2025 10:00 AM EDT Office Visit Adult Medicine [address] [phone] Usha Jurado PA [address] [place] [address] 05/10/2025 9:20 AM EST Office Visit [facility] - [facility] [address] [facility] [address] [place] [address] Kiel Ramirez MD [address] [place] [address] [address] [place] [address] 10/10/2025 7:50 AM EDT Appointment Radiology Department - [address] [phone] Health Maintenance Due Date Last Done Comments Diabetes: Annual Foot Exam 01/29/1976 Diabetes: Annual Retina Eye Exam 01/29/1976 Hepatitis B Vaccines (1 of 3 - 19+ 3-dose series) 1985 Pneumococcal Vaccine: 50+ Years (2 of 2 - PCV) 12/13/2022 12/13/2021 COVID-19 Vaccine (3 - season) 2025 08/19/2020, 07/22/2020 Influenza Vaccine (#1) 2025 , 05/05/2023, 04/15/2022, Additional history exists Social Influencers of Health Screening 07/04/2025 07/04/2024 Diabetes: Blood Sugar Control Test (HGBA1C) 07/16/2025 01/13/2025, 10/14/2024, 04/30/2024, Additional history exists Diabetes: Annual Urine Albumin-Creatinine Ratio (uACR) 10/14/2025 10/14/2024, 01/30/2024 Diabetes: Annual GFR (Glomerular Filtration Rate) 10/14/2025 10/14/2024, 05/14/2024, 04/30/2024, Additional history exists Hypertension/CHF/CAD Annual BMP Blood Test 10/14/2025 10/14/2024, 05/14/2024, 04/30/2024, Additional history exists Breast Cancer Screening 10/05/2026 10/06/19, 06/06/2023, 05/01/2022, Additional history exists Cervical Cancer Screening: HPV 07/06/2029 07/06/2024, 07/02/2018 Cholesterol Screening (Lipid Panel) 10/14/2029 10/14/2024, 04/30/2024, 10/06/2023 DTaP,Tdap,and Td Vaccines (5 - Td or Tdap) 12/14/2031 12/13/2021, 12/04/2010, 12/03/2000, Additional history exists Colorectal Cancer Screening: Colonoscopy 11/16/2034 11/16/2024 RSV Immunization Adult Patients (1 - 1-dose 75+ series) 2041 HIV Screening Completed 10/27/2006 Hepatitis C Screening Completed 10/06/2023 Zoster Vaccines Completed 04/13/2024, 02/12/2024 Depression Screening Completed 07/04/2024 HIB Vaccines Aged Out No longer eligi ble based on patient's age to complete this topic HPV Vaccines Aged Out No longer eligi ble based on patient's age to complete this topic Hepatitis A Vaccines Aged Out No long er eligible based on patient's age to complete this topic IPV Vaccines Aged Out No longer eligi ble based on patient's age to complete this topic MMR Vaccines Aged Out No longer eligi ble based on patient's age to complete this topic Meningococcal ACWY Vaccine Aged Out N o longer eligible based on patient's age to complete this topic Meningococcal B Vaccine Aged Out No l onger eligible based on patient's age to complete this topic RSV Immunization Patients Under 20 months Aged Out No longer eligible based on patient's age to complete this topic Varicella Vaccines Aged Out No longer eligible based on patient's age to complete this topic Procedures Procedure Name Priority Date/Time Associated Diagnosis Comments POC GLUCOSE Routine 01/13/2025 4:40 PM EDT Type 2 diabetes mellitus with diabetic microalbuminuria, without long-term current use of insulin ([facility] V24, [facility] V28) HEMOGLOBIN A1C Routine 01/13/2025 10:23 AM EDT Type 2 diabetes mellitus with diabetic microalbuminuria, without long-term current use of insulin ([facility] V24, [facility] V28) CULTURE URINE Routine 01/10/2025 10:50 AM EDT Urinary tract infection, site not specified Acute cystitis with hematuria COLONOSCOPY Routine 11/16/2024 10:37 AM EDT Colon cancer screening MICROALBUMIN CREATININE URINE RATIO Routine 10/14/2024 10:05 AM EDT Type 2 diabetes mellitus with diabetic microalbuminuria, without long-term current use of insulin ([facility] V24, [facility] V28) Microalbuminuria Diabetes mellitus type 2 with neurological manifestations ([facility] V24, [facility] V28) JOSE (obstructive sleep apnea) Elevated LFTs COMPREHENSIVE METABOLIC PANEL Routine 10/14/2024 10:05 AM EDT Type 2 diabetes mellitus with diabetic microalbuminuria, without long-term current use of insulin ([facility] V24, [facility]28) Microalbuminuria Diabetes mellitus type 2 with neurological manifestations ([facility] V24, [facility] V28) JOSE (obstructive sleep apnea) Elevated LFTs LIPID PANEL WITH REFLEX TO DIRECT LDL Routine 10/14/2024 10:05 AM EDT Type 2 diabetes mellitus with diabetic microalbuminuria, without long-term current use of insulin ([facility] V24, [facility] V28) Microalbuminuria Diabetes mellitus type 2 with neurological manifestations ([facility] V24, [facility] V28) JOSE (obstructive sleep apnea) Elevated LFTs MG MAMMO DIGITAL SCREENING W CONRADO BILAT Routine 10/05/2024 8:16 AM EDT Encounter for screening mammogram for breast cancer HPV WITH REFLEX GENOTYPE Routine 07/06/2024 9:12 AM EST Encounter for gynecological examination without abnormal finding from Last 3 Months or Most Recently Relevant to Health Maintenance Results * POC glucose manually resulted (01/13/2025 4:40 PM EDT) Glucose POC 100 mg/dL Blood Capillary blood specimen / Unknown 01/13/2025 4:40 PM EDT us Mago Manriquez MD POINT OF CARE TEST ENTER/EDIT OR DERABLES Final Result * Hemoglobin A1c (01/13/2025 10:23 AM EDT) Hemoglobin A1C 6.4 <6.5 % LAB CHEMISTRY METHOD 01/13/2025 1:33 PM EDT [facility] Mean Bld Glu Estim. 137 mg/dL LAB CHEMISTRY METHOD 01/13/2025 1:33 PM EDT [facility] Blood Venous blood specimen / Unknown Venipuncture / Unknown 01/13/2025 10:23 AM EDT 01/13/2025 10:23 AM EDT us Mago Manriquez MD LAB BLOOD ORDERABLES Final Resul t [facility] [address] [place] [address], [place] [phone] * (ABNORMAL) Culture urine (01/10/2025 10:50 AM EDT) [facility] Signature Culture, Urine 10,000-49,000 CFU/mL Morganella morganii ssp morganii(A) ROSALVA 01/12/2025 9:28 AM EDT [facility] Comment: This is an edited result. Previous organism was Gram negative bacilli on 01/11/2025 at 0833 EDT. Urine Urine specimen obtained by clean catch procedure / Unknown 01/10/2025 10:50 AM EDT 01/10/2025 12:19 PM EDT Narrative Organism Antibiotic Method Susceptibility Morganella morganii ssp morganii Amoxicillin/Clavulanate ROSALVA >=32 ug/ml: Resistant Morganella morganii ssp morganii Ampicillin/Sulbactam ROSALVA >=32 ug/ml: Resistant Morganella morganii ssp morganii Piperacillin/Tazobactam ROSALVA <=4 ug/ml: Susceptible Morganella morganii ssp morganii Cefoxitin ROSALVA 16 ug/ml: Intermediate Morganella morganii ssp morganii Meropenem ROSALVA <=0.25 ug/ml: Susceptible Morganella morganii ssp morganii Amikacin ROSALVA 4 ug/ml: Susceptible Morganella morganii ssp morganii Ciprofloxacin ROSALVA <=0.06 ug/ml: Susceptible Morganella morganii ssp morganii Levofloxacin ROSALVA <=0.12 ug/ml: Susceptible Morganella morganii ssp morganii Nitrofurantoin ROSALVA 128 ug/ml: Resistant Morganella morganii ssp morganii Trimethoprim/Sulfamethoxazo le ROSALVA <=20 ug/ml: Susceptible us Poli Wayne MD LAB MICROBIOLOGY - GENERA L ORDERABLES Final Result [facility] [address] [place] [address], [place] [phone] * COLONOSCOPY Anesthesia - MAC; [facility] ENDOSCOPY (11/16/2024 10:37 AM EDT) Anatomical Region Laterality Modality Endoscopy 11/16/2024 10:1 4 AM EDT Impressions 11/16/2024 10:32 AM EDT - One diminutive polyp in the ascending colon, removed with a jumbo cold forceps. Resected and retrieved. - Internal hemorrhoids. - The examination was otherwise normal. Recommendation: - Discharge patient to home. - Await pathology results. - Repeat colonoscopy in 10 years for surveillance. Narrative 11/16/2024 10:[address] [facility] Patient Name: Jorge Negrete Procedure Date: 11/16/2024 10:14 AM Date of : 1965 Age: 59 Gender: Female Note Status: Finalized Attending MD: Waldemar Perez MD, Procedure Date No Time: 11/16/2024 Procedure: Colonoscopy Indications: High risk colon cancer surveillance: Personal history of colonic polyps Providers: Waldemar Perez MD Referring MD: Waldemar Perez MD Medicines: Monitored Anesthesia Care Complications: No immediate complications. Estimated blood loss: Minimal. Estimated Blood Loss: Estimated blood loss was minimal. Procedure: Pre-Anesthesia Assessment: - Prior to the procedure, a History and Physical was performed, and patient medications and allergies were reviewed. The patient is competent. The risks and benefits of the procedure and the sedation options and risks were discussed with the patient. All questions were answered and informed consent was obtained. Patient identification and proposed procedure were verified by the physician, the nurse, the associate chemist and the computer forensics technician in the pre-procedure area in the endoscopy suite. Mental Status Examination: alert and oriented. Airway Examination: normal oropharyngeal airway and neck mobility. Respiratory Examination: clear to auscultation. CV Examination: normal. Prophylactic Antibiotics: The patient does not require prophylactic antibiotics. Prior Anticoagulants: The patient has taken no anticoagulant or antiplatelet agents. ASA Grade Assessment: III - A patient with severe systemic disease. After reviewing the risks and benefits, the patient was deemed in satisfactory condition to undergo the procedure. The anesthesia plan was to use monitored anesthesia care (MAC). Immediately prior to administration of medications, the patient was re-assessed for adequacy to receive sedatives. The heart rate, respiratory rate, oxygen saturations, blood pressure, adequacy of pulmonary ventilation, and response to care were monitored throughout the procedure. The physical status of the patient was re-assessed after the procedure. After I obtained informed consent, the scope was passed under direct vision. Throughout the procedure, the patient's blood pressure, pulse, and oxygen saturations were monitored continuously. The Colonoscope was introduced through the anus and advanced to the cecum, identified by appendiceal orifice and ileocecal valve. The colonoscopy was performed without difficulty. The patient tolerated the procedure well. The quality of the bowel preparation was good. Findings: The perianal and digital rectal examinations were normal. A diminutive polyp was found in the ascending colon. The polyp was sessile. The polyp was removed with a jumbo cold forceps. Resection and retrieval were complete. Estimated blood loss was minimal. Internal hemorrhoids were found during retroflexion. The hemorrhoids were Grade I (internal hemorrhoids that do not prolapse). The exam was otherwise without abnormality. Procedure Code(s): --- Professional --- 47683, Colonoscopy, flexible; with biopsy, single or multiple Diagnosis Code(s): --- Professional --- D12.2, Benign neoplasm of ascending colon CPT copyright 2020 [employer]. All rights reserved. The codes documented in this report are preliminary and upon steward/stewardess night review may be revised to meet current compliance requirements. Waldemar Perez MD 11/16/2024 10:32:10 AM This report has been signed electronically.Waldemar Perez MD Number of Addenda: 0 Note Initiated On: 11/16/2024 10:14 AM Scope Withdrawal Time: 0 hours 6 minutes 23 seconds Scope In: 10:19:32 AM Scope Out: 10:30:44 AM Endoscopy Department at [facility] - [address] [place] [phone] Procedure Note Waldemar Perez MD - 11/16/2024 [facility] Patient Name: Jorge Negrete Procedure Date: 11/16/2024 10:14 AM Date of : 1965 Age: 59 Gender: Female Note Status: Finalized Attending MD: Waldemar Perez MD, Procedure Date No Time: 11/16/2024 Procedure: Colonoscopy Indications: High risk colon cancer surveillance: Personalhistory of colonic polyps Providers: Waldemar Perez MD Referring MD: Waldemar Perez MD Medicines: Monitored Anesthesia Care Complications: No immediate complications. Estimated blood loss: Minimal. Estimated Blood Loss: Estimated blood loss was minimal. Procedure: Pre-Anesthesia Assessment: - Prior to the procedure, a History and Physicalwas performed, and patient medications and allergieswere reviewed. The patient is competent. The risks and benefits of the procedure and the sedation optionsand risks were discussed with the patient. Allquestions were answered and informed consent was obtained. Patient identification and proposed procedure were verified by the physician, the nurse, theanesthetist and the computer forensics technician in the pre-procedure area in the endoscopy suite. Mental Status Examination: alertand oriented. Airway Examination: normal oropharyngeal airway and neck mobility. Respiratory Examination: clear to auscultation. CV Examination: normal. Prophylactic Antibiotics: The patient does notrequire prophylactic antibiotics. Prior Anticoagulants: The patient has taken no anticoagulant or antiplatelet agents. ASA Grade Assessment: III - A patient with severe systemic disease. After reviewing the risksand benefits, the patient was deemed in satisfactory condition to undergo the procedure. The anesthesia plan was to use monitored anesthesia care (MAC). Immediately prior to administration of medications, the patient was re-assessed for adequacy to receive sedatives. The heart rate, respiratory rate, oxygen saturations, blood pressure, adequacy of pulmonary ventilation, and response to care were monitored throughout the procedure. The physical status ofthe patient was re-assessed after the procedure. After I obtained informed consent, the scope was passed under direct vision. Throughout theprocedure, the patient's blood pressure, pulse, and oxygen saturations were monitored continuously. The Colonoscope was introduced through the anus and advanced to the cecum, identified by appendiceal orifice and ileocecal valve. The colonoscopy was performed without difficulty. The patient tolerated the procedure well. The quality of the bowel preparation was good. Findings: The perianal and digital rectal examinations were normal. A diminutive polyp was found in the ascendingcolon. The polyp was sessile. The polyp was removed with a jumbo cold forceps. Resection and retrieval were complete. Estimated blood loss was minimal. Internal hemorrhoids were found duringretroflexion. The hemorrhoids were Grade I (internal hemorrhoids that do not prolapse). The exam was otherwise without abnormality. Procedure Code(s): --- Professional --- 99098, Colonoscopy, flexible; with biopsy, singleor multiple Diagnosis Code(s): --- Professional --- D12.2, Benign neoplasm of ascending colon CPT copyright 2020 [employer]. All rights reserved. The codes documented in this report are preliminary and upon steward/stewardess night reviewmay be revised to meet current compliance requirements. Waldemar Perez MD 11/16/2024 10:32:10 AM This report has been signed electronically.Waldemar Perez MD Number of Addenda: 0 Note Initiated On: 11/16/2024 10:14 AM Scope Withdrawal Time: 0 hours 6 minutes 23 seconds Scope In: 10:19:32 AM Scope Out: 10:30:44 AM Endoscopy Department at [facility] - [address] [place] [phone] IMPRESSION: - One diminutive polyp in the ascending colon, removed with a jumbo cold forceps. Resected andretrieved. - Internal hemorrhoids. - The examination was otherwise normal. Recommendation: - Discharge patient to home. - Await pathology results. - Repeat colonoscopy in 10 years forsurveillance. us Waldemar Perez MD GI~PROCEDURE ORDERABLES Fin al Result * (ABNORMAL) Lipid panel with reflex to direct LDL (10/14/2024 10:05 AM EDT) Cholesterol 181 0 - 200 mg/dL LAB CHEMISTRY METHOD 10/14/2024 1:39 PM EDT [facility] Triglycerides 86 0 - 150 mg/dL LAB CHEMISTRY METHOD 10/14/2024 1:39 PM EDT [facility] HDL 53 >=40 mg/dL LAB CHEMISTRY METHOD 10/14/2024 1:39 PM EDT [facility] LDL Calculated 111(H) 0 - 100 mg/dL LAB CHEMISTRY METHOD 10/14/2024 1:39 PM EDT [facility] VLDL Cholesterol Kj 17.2 mg/dL LAB CHEMISTRY METHOD 10/14/2024 1:39 PM EDT [facility] Non HDL Chol. (LDL+VLDL) 128 <145 mg/dL LAB CHEMISTRY METHOD 10/14/2024 1:39 PM EDT [facility] Chol/HDL Ratio 3.4 0.0 - 4.4 LAB CHEMISTRY METHOD 10/14/2024 1:39 PM EDT [facility] Blood Venous blood specimen / Unknown Venipuncture / Unknown 10/14/2024 10:05 AM EDT 10/14/2024 10:05 AM EDT us Usha DO LAB BLOOD ORDERABLES Final Re sult Performing Organization Address [facility]/ZIP Co de Phone Number [facility] [address] [place] [address], [place] [phone] * (ABNORMAL) Microalbumin creatinine urine ratio (10/14/2024 10:05 AM EDT) Creatinine, Urine 73.0 mg/dL LAB CHEMISTRY METHOD 10/14/2024 2:40 PM EDT [facility] Microalb, Ur 68.9(H) 0.0 - 29.0 mg/L LAB CHEMISTRY METHOD 10/14/2024 2:40 PM EDT [facility] Microalb/Crea t Ratio 94(H) <30 mg/g creat LAB CHEMISTRY METHOD 10/14/2024 2:40 PM EDT [facility] Urine Urine specimen from urethra / Unknown Non-blood Collection / Unknown 10/14/2024 10:05 AM EDT 10/14/2024 10:05 AM EDT us Usha DO LAB URINE ORDERABLES Final Re sult [facility] [address] [place] [address], [place] [phone] * (ABNORMAL) Comprehensive metabolic panel (10/14/2024 10:05 AM EDT) Sodium 140 133 - 145 mmol/L LAB CHEMISTRY METHOD 10/14/2024 1:39 PM [facility] Potassium 4.1 3.5 - 5.5 mmol/L LAB CHEMISTRY METHOD 10/14/2024 1:39 PM [facility] Chloride 108 96 - 110 mmol/L LAB CHEMISTRY METHOD 10/14/2024 1:39 PM [facility] CO2 24 21 - 32 mmol/L LAB CHEMISTRY METHOD 10/14/2024 1:39 PM [facility] Anion Gap 8 3 - 11 LAB CHEMISTRY METHOD 10/14/2024 1:39 PM [facility] Glucose 122(H) 70 - 100 mg/dL LAB CHEMISTRY METHOD 10/14/2024 1:39 PM [facility] BUN 13 5 - 25 mg/dL LAB CHEMISTRY METHOD 10/14/2024 1:39 PM [facility] Creatinine 0.88 0.50 - 1.10 mg/dL LAB CHEMISTRY METHOD 10/14/2024 1:39 PM [facility] eGFR 76 >=60 mL/min/1. 73m2 LAB CHEMISTRY METHOD 10/14/2024 1:39 PM [facility] Comment:Calculation based on the Chronic Kidney Disease Epidemiology Collaboration (CKD-EPI) equation refit without adjustment for race. BUN/Creatinine Ratio 14.8 LAB CHEMISTRY METHOD 10/14/2024 1:39 PM [facility] Calcium 9.6 8.5 - 10.5 mg/dL LAB CHEMISTRY METHOD 10/14/2024 1:39 PM [facility] AST (SGOT) 50(H) 10 - 42 unit/L LAB CHEMISTRY METHOD 10/14/2024 1:39 PM [facility] ALT (SGPT) 67(H) 10 - 60 unit/L LAB CHEMISTRY METHOD 10/14/2024 1:39 PM [facility] Alkaline Phosphatase 125(H) 42 - 121 unit/L LAB CHEMISTRY METHOD 10/14/2024 1:39 PM EDT [facility] Total Protein 7.7 6.0 - 8.0 g/dL LAB CHEMISTRY METHOD 10/14/2024 1:39 PM EDT [facility] Albumin 4.0 3.2 - 5.0 g/dL LAB CHEMISTRY METHOD 10/14/2024 1:39 PM EDT [facility] Total Bilirubin 0.4 0.0 - 1.4 mg/dL LAB CHEMISTRY METHOD 10/14/2024 1:39 PM EDT [facility] Blood Venous blood specimen / Unknown Venipuncture / Unknown 10/14/2024 10:05 AM EDT 10/14/2024 10:05 AM EDT us Usha DO LAB BLOOD ORDERABLES Final Re sult [facility] [address] [place] [address], [place] [phone] * MG Mammo Digital Screening w Conrado bilat (10/05/2024 8:16 AM EDT) Anatomical Region Laterality Modality Breast Bilateral Mammography 10/05/2024 1:35 PM EDT Impressions 10/05/2024 1:39 PM EDT Benign. BI-RADS CATEGORY: 1 - NEGATIVE RECOMMENDATION: Screening bilateral mammogram is recommended in 1 year. Mammo Location: [facility], [address] [place] [address], [address], . -------- FINAL REPORT -------- Dictated By: Cher Cain Dictated Date: 10/05/2024 13:35 ET Assigned Physician: Cher Cain Reviewed and Electronically Signed By: Cher Cain Signed Date: 10/05/2024 13:39 ET Workstation ID: [id number] Transcribed By: Self Edit Transcribed Date: 10/05/2024 13:35 ET Narrative 10/05/2024 1:39 PM EDT CLINICAL: 59 years old, Female, routine annual exam. COMPARISON: Mammograms dating back to 04/13/2020 with most recent of 06/06/2023. TECHNIQUE: Bilateral MLO and CC views were obtained digitally with 3-D mammogram (digital breast tomosynthesis). Computer-aided detection was utilized in evaluation of this exam (CAD). FINDINGS: There is no evidence of suspicious mass or architectural distortion. No worrisome calcifications are evident. There is a biopsy clip in the anterior slightly outer upper left breast. There has been no significant change from prior exam(s). BREAST DENSITY: C - The breasts are heterogeneously dense which may obscure small masses. Procedure Note Cher Cain MD - 10/05/2024 CLINICAL: 59 years old, Female, routine annual exam. COMPARISON: Mammograms dating back to 04/13/2020 with most recent of06/06/2023. TECHNIQUE: Bilateral MLO and CC views were obtained digitally with 3-Dmammogram (digital breast tomosynthesis). Computer-aided detection wasutilized in evaluation of this exam (CAD). FINDINGS: There is no evidence of suspicious mass or architectural distortion. Noworrisome calcifications are evident. There is a biopsy clip in theanterior slightly outer upper left breast. There has been no significantchange from prior exam(s). BREAST DENSITY: C - The breasts are heterogeneously dense which mayobscure small masses. IMPRESSION: Benign. BI-RADS CATEGORY: 1 - NEGATIVE RECOMMENDATION: Screening bilateral mammogram is recommended in 1 year. Mammo Location: [facility], [address] [place] [address], [address], . -------- FINAL REPORT -------- Dictated By: Cher Cain Dictated Date: 10/05/2024 13:35 ET Assigned Physician: Cher Cain Reviewed and Electronically Signed By: Cher Cain Signed Date: 10/05/2024 13:39 ET Workstation ID: [id number] Transcribed By: Self Edit Transcribed Date: 10/05/2024 13:35 ET us Mago Manriquez MD IMG BI PROCEDURES Final Result * HPV with reflex genotype (07/06/2024 9:12 AM EST) HPV Negative Negative LAB MICROBIOLOGY METHOD 07/07/2024 1:39 PM EST [facility] Brushing/Spatula Cervix uteri structure / Unknown 07/06/2024 9:12 AM EST 07/07/2024 6:09 AM EST Christina YEH LAB MOLECULAR DIAGNOSTICS ANNA NIETO Final Result [facility] ([facility]) [facility] [address] [place] [address], from Last 3 Months or Most Recently Relevant to Health Maintenance Insurance [facility] [employer] Care Teams Estimator And Drafter Supervisor Relationship Specialty Start Date End Date Mago Manriquez MD [address] [place] [address] PCP - General Internal Medicine 05/14/24
--- OUTSIDE RECORDS SUMMARY | 2025-03-16 12:17 | XMS_ITS | Encounter Summary ---
Author Organization [facility] Address [address] [place] [address] Care Team Providers Care Furnace Combustion Tester Name Role Phone Mago Manriquez MD Primary Care Provider [phone] Encounter Details Date Type Department Care Team (Late st Contact Info) Description 11/23/2024 Lab Requisition [facility] - Main Lab [address] [facility] [place] [address] Poli Wayne MD [address] [place] [address] Acute cystitis with hematuria; Urinary tract infection, site not specified Social History Tobacco Use Types Packs/Day Years Used Date Smoking Tobacco: Never Smokeless Tobacco: Never Alcohol Use Standard Drinks/Week Comments Yes 0 [...] ed Within the last 3 months, marya ramos many times did you visit the emergency [...] care for your loved ones. For example, rn maternal child or elderly care for an older adult? [...] Orientation Straight 05/17/2024 4: 31 PM EST documented as of this encounter Functional Status * Are you deaf or do you have serious difficulty hearing? Answer Date of Assessment Author No 05/14/2024 3:41 PM EST Danica Harris RN * Are you blind or do you have serious difficulty seeing, even when wearing glasses? Answer Date of Assessment Author No 05/14/2024 3:41 PM Danica Ortiz RN * Do you have serious difficulty walking or climbing stairs? Answer Date of Assessment Author No 05/14/2024 3:41 PM Danica Ortiz RN * Do you have serious difficulty dressing or bathing? Answer Date of Assessment Author No 05/14/2024 3:41 PM Danica Ortiz RN * Because of a physical, mental, or emotional condition, do you have serious difficulty doing errandsalone such as visiting the doctor? Answer Date of Assessment Author No 05/14/2024 3:41 PM Danica Ortiz RN documented as of this encounter Mental Status * Because of a physical, mental, or emotional condition, do you have serious difficulty concentrating, remembering, or making decisions? (5 years old or older) Answer Entry Date Author No 05/14/2024 3:41 PM Danica Ortiz RN documented in this encounter Plan of Treatment Upcoming Encounters Date Type Department Care Team (Late st Contact Info) Description 04/15/2025 10:00 AM EDT Office Visit Adult Medicine [address] [phone] Usha Jurado PA [address] [place] [address] 05/10/2025 9:20 AM EST Office Visit [facility] [address] [facility] [address] [place] [address] Kiel Ramirez MD [address] [place] [address] Dr [address] [place] [address] 10/10/2025 7:50 AM EDT Appointment Radiology Department - [address] [phone] documented as of this encounter Procedures Procedure Name Priority Date/Time Associated Diagnosis Comments CULTURE URINE Routine 11/23/2024 10:00 AM EDT Acute cystitis with hematuria Urinary tract infection, site not specified documented in this encounter Results * (ABNORMAL) Culture urine (11/23/2024 10:00 AM EDT) Culture, Urine 50,000-100,000 CFU/mL Escherichia coli(A) ROSALVA 11/25/2024 11:05 AM EDT [facility] Urine Urine specimen obtained by clean catch procedure / Unknown 11/23/2024 10:00 AM EDT 11/23/2024 12:45 PM EDT Narrative Organism Antibiotic Method Susceptibility Escherichia coli Amoxicillin/Clavulanate ROSALVA <=2 ug/ml: Susceptible Escherichia coli Ampicillin/Sulbactam ROSALVA <=2 ug/ml: Susceptible Escherichia coli Piperacillin/Tazobactam ROSALVA <=4 ug/ml: Susceptible Escherichia coli Cefazolin (Urine) ROSALVA <=1 ug/ml: Susceptible Escherichia coli Cefoxitin ROSALVA <=4 ug/ml: Susceptible Escherichia coli Ceftazidime ROSALVA <=0.5 ug/ml: Susceptible Escherichia coli Ceftriaxone ROSALVA <=0.25 ug/ml: Susceptible Escherichia coli Cefepime ROSALVA <=0.12 ug/ml: Susceptible Escherichia coli Meropenem ROSALVA <=0.25 ug/ml: Susceptible Escherichia coli Amikacin ROSALVA 2 ug/ml: Susceptible Escherichia coli Gentamicin ROSALVA <=1 ug/ml: Susceptible Escherichia coli Ciprofloxacin ROSALVA <=0.06 ug/ml: Susceptible Escherichia coli Levofloxacin ROSALVA <=0.12 ug/ml: Susceptible Escherichia coli Nitrofurantoin ROSALVA <=16 ug/ml: Susceptible Escherichia coli Trimethoprim/Sulfamethoxazole ROSALVA <=20 ug/ml: Susceptible Poli Wayne MD LAB MICROBIOLOGY - GENERA L ORDERABLES Final Result [facility] [address] [place] [address], documented in this encounter Visit Diagnoses Diagnosis Acute cystitis with hematuria Urinary tract infection, site not specified documented in this encounter Additional Health Concerns Assessment Noted Time PHQ-9 Depression Total Score: 0 07/04/19 25 3:18 PM EST documented as of this encounter Care Teams Furnace Combustion Tester Relationship Specialty Start Date End Date Mago Manriquez MD [address] [place] [address] PCP - General Internal Medicine 05/14/24 documented as of this encounter
--- OUTSIDE RECORDS SUMMARY | 2025-03-16 12:17 | XMS_ITS | Encounter Summary ---
Author Organization [facility] Address [address] [place] [address] Care Team Providers Care Glue Sprayer Name Role Phone Mago Manriquez MD Primary Care Provider [phone] Encounter Details Date Type Department Care Team (Late st Contact Info) Description 01/10/2025 Lab Requisition [facility] - Main Lab [address] [facility] [place] [address] Poli Wayne MD [address] [facility] [address] [place] [address] Urinary tract infection, site not specified; Acute cystitis with hematuria Social History Tobacco Use Types Packs/Day Years [...] care for your loved ones. For example, child watch attendant or elderly care for an older adult? [...] 10:00 AM EDT Office Visit Adult Medicine [address] [phone] Usha Jurado PA [address] [place] [address] 05/10/2025 9:20 AM EST Office Visit [facility] [address] [facility] [address] [place] [address] Kiel Ramirez MD [address] [place] [address] Dr [address] [place] [address] 10/10/2025 7:50 AM EDT Appointment Radiology Department - [address] [phone] documented as of this encounter Procedures Procedure Name Priority Date/Time Associated Diagnosis Comments CULTURE URINE Routine 01/10/2025 10:50 AM EDT Urinary tract infection, site not specified Acute cystitis with hematuria documented in this encounter Results * (ABNORMAL) Culture urine (01/10/2025 10:50 AM EDT) Culture, Urine 10,000-49,000 CFU/mL Morganella morganii ssp morganii(A) ROSALVA 01/12/2025 9:28 AM EDT [facility] Comment: This is an edited [...] le ROSALVA <=20 ug/ml: Susceptible us Poli Wyane MD LAB MICROBIOLOGY - GENERA L ORDERABLES Final Result [facility] [address] [place] [address], documented in this encounter Visit Diagnoses Diagnosis Urinary tract infection, site not specified Acute cystitis with hematuria documented in this encounter Additional Health Concerns Assessment Noted Time PHQ-9 Depression Total Score: 0 07/04/19 25 3:18 PM EST documented as of this encounter Care Teams Glue Sprayer Relationship Specialty Start Date End Date Mago Manriquez MD [address] [place] [phone] PCP - General Internal Medicine 05/14/24 documented as of this encounter
--- OUTSIDE RECORDS SUMMARY | 2025-03-16 12:17 | XMS_ITS | Clinical Summary ---
Author Organization [facility] Address [address] [place] [address] Phone Care Team Providers Care Spout Worker Name Role Phone Mago Manriquez MD Primary Care Provider [phone] Allergies Active Allergy Reactions Criticality Noted Date Comments Codeine Nausea And Vomiting, Other (see comments),Photosensitivity Medium 07/17/2005 Medications amitriptyline (ELAVIL) 10 MG tablet Take 10 mg by mouth every night Active lisinopril 5 MG tablet Take 1 tablet by mouth 1 (one) time each day 06/06/2023 Active loratadine (CLARITIN) 10 MG tablet Take 1 tablet by mouth 1 (one) time each day 12/02/2022 Active topiramate (TOPAMAX) 100 MG tablet Take 100 mg by mouth every night Active metFORMIN (FORTAMET) 500 MG 24 hr tablet Take 500 mg by mouth 1 (one) time each day with dinner Do not crush, chew, or split. Active Active Problems Problem Noted Date Diagnosed Date Microalbuminuria 12/14/2021 History of calculus of kidney 04/23/2021 Hypertensive disorder 09/18/2010 Resolved Problems Problem Noted Date Diagnosed Date Resolved Date Severe obesity 04/15/2022 07/16/2023 Hemorrhoid 12/17/2021 07/16/2023 Overview (07/16/2023): Last Assessment & Plan: Encouraged use of OTC medications such as preparation H, avoid constipation by staying well hydrated, discussed use of cotton balls soaked with MOM. Patient to follow-up with PCP if symptoms worsen. Other shoulder lesion of left shoulder 11/09/2021 07/16/2023 Triggering of digit 11/09/2021 07/16/19 Acute recurrent cystitis 04/23/2021 Overview (07/16/2023): [facility] urology Obstructive sleep apnea syndrome 04/25/2017 07/16/2023 Does use hearing aid 06/26/2015 024 Migraine 09/19/2014 07/16/2023 Type 2 diabetes mellitus 05/31/2013 Benign paroxysmal positional vertigo 11/17/2012 07/16/2023 Allergic rhinitis, cause unspecified 11/25/2005 07/16/2023 Bilateral carpal tunnel syndrome 10/16/2005 07/16/2023 Encounters Date Type Department Care Team Description 02/25/2025 10:15 AM EDT Office Visit [facility] [address] [facility] [address] [place] [address] Jeramie Mcqueen MD Hypertensive disorder (Primary Dx); Atrophy of kidney; Chronic kidney disease, not otherwise specified 02/25/2025 Office Communication [facility] [address] [place] [address] [address] [place] [address] Jeramie Mcqueen MD from Last 3 Months Immunizations Immunization Administration Dates Next Due Influenza, MDCK, PF, Quadrivalent 04/15/2022 Influenza, MDCK, Quadrivalen t, with preservative 04/03/2018,04/25/2017 Influenza, Unspecified 05/05/2023,2020,04/23/2021,02/24,02/25/2020,04/19/2019,04/04/2016 ,03/03/2015,05/11/2014,04/20/2013,02/21,07/04/2011,03/30/2007 Moderna SARS-COV-2 08/19/2020,07/22/2020 Pneumococcal Polysaccharide 12/13/2021 Td 12/13/2021,12/13/2021,12/03/2000 Tdap 12/04/2010,12/03/2000 Social History Tobacco Use Types Packs/Day Years Used Date Smoking Tobacco: Never Passive Smoke Exposure: Never Smokeless Tobacco: Never Tobacco Cessation:Counseling Given: No Alcohol Use Standard Drinks/Week Comments Never 0 (1 standard drink = 0.6 oz pur e alcohol) Comments Unknown Sex and Gender Information Value Date Recorded Sex Assigned at Not on file Legal Sex Female 4:51 PM EST Gender Identity Not on file Sexual Orientation Not on file Last Filed Vital Signs Vital Sign Reading Time Taken Comments Blood Pressure 104/60 02/25/2025 10:07 AM EDT Pulse 84 02/25/2025 10:07 AM EDT Temperature - - Respiratory Rate - - Oxygen Saturation - - Inhaled Oxygen Concentration - - Weight 79.8 kg (176 lb) 02/25/2025 10:07 AM EDT Height - - Body Mass Index - - Plan of Treatment Upcoming Encounters Date Type Department Care Team (Late st Contact Info) Description 03/01/2026 1:00 PM EDT Office Visit [facility] [address] [place] [phone] Jeramie Mcqueen MD [address] [phone] Health Maintenance Due Date Last Done Comments Breast Cancer Screening 1966 Hepatitis B Vaccine (1 of 3 - 19+ 3-dose series) 1985 Colorectal Cancer Screening: Annual FOBT 2015 Colorectal Cancer Screening: Colonoscopy 2015 Colorectal Cancer Screening: Sigmoidoscopy 2015 Pneumococcal Vaccine: 50+ Ye ars (2 of 2 - PCV) 12/13/2022 12/13/2021 Diabetes: Ophthalmology Exam 01/17/2025 Diabetes: Pedal Pulse Checked 01/17/2025 Diabetes: Sensory Foot Exam 01/17/2025 Diabetes: Visual Foot Exam 01/17/2025 Influenza Vaccine (#1) 2025 , 05/05/2023, 04/15/2022, Additional history exists Diabetes: Hemoglobin A1C 04/15/2025 01/13/2025, 11 Pneumococcal Vaccine: Peds ( 0 to 5 Years) and At-Risk Patients (6 to 49 Years) Discontinued 12/13/2021 Insurance [facility] Medicaid Care Teams Spout Worker Relationship Specialty Start Date End Date Mago Manriquez MD [address] [place] [address] PCP - General Internal Medicine 07/16/23
--- OUTSIDE RECORDS SUMMARY | 2025-03-16 12:17 | XMS_ITS | Encounter Summary ---
Author Organization [facility] Address [address] [place] [address] Care Team Providers Care Vendor Management Associate Name Role Phone Mago Manriquez MD Primary Care Provider [phone] Encounter Details Date Type Department Care Team (Late st Contact Info) Description 10/28/2024 Lab Requisition [facility] - Main Lab 299 [facility] [place] [address] Julianne Pearce PA [address] [place], [place] [id number] Acute cystitis with hematuria Social History Tobacco [...] care for your loved ones. For example, childcare worker or elderly care for an older adult? [...] What is your living situation? 0 07/04/2024 Comments No Sex and Gender Information Value [...] 05/14/2024 3:41 PM Danica Ortiz RN * Are you blind or do [...] 10:00 AM EDT Office Visit Adult Medicine [facility] - [address] [phone] Usha Jurado PA [address] [place] [address] 05/10/2025 9:20 AM EST Office Visit [facility] - [facility] [address] [phone] Kiel Ramirez MD [address] [place] [address] Dr [address] [place] [address] 10/10/2025 7:50 AM EDT Appointment Radiology Department - [address] [phone] documented as of this encounter Procedures Procedure Name Priority Date/Time Associated Diagnosis Comments CULTURE URINE Routine 10/28/2024 1:10 PM EDT Acute cystitis with hematuria documented in this encounter Results * (ABNORMAL) Culture urine (10/28/2024 1:10 PM EDT) Culture, Urine >100,000 CFU/mL Escherichia coli(A) ROSALVA 10/30/2024 8:22 AM EDT [facility] Urine Urine specimen obtained by clean catch procedure / Unknown 10/28/2024 1:10 PM EDT 10/28/2024 6:08 PM EDT Narrative Organism Antibiotic Method Susceptibility [...] Escherichia coli Trimethoprim/Sulfamethoxazole ROSALVA <=20 ug/ml: Susceptible Julianne DO LAB MICROBIOLOGY - GENERAL ORD ERABLES Final Result [facility] [address] [place] [address], documented in this encounter Visit Diagnoses Diagnosis Acute cystitis with hematuria documented in this encounter Additional Health Concerns Assessment Noted Time PHQ-9 Depression Total Score: 0 07/04/19 25 3:18 PM EST documented as of this encounter Care Teams Vendor Management Associate Relationship Specialty Start Date End Date Mago Manriquez MD [address] [place] [address] PCP - General Internal Medicine 05/14/24 documented as of this encounter
== END 2025-03-16 10:26 | disposition home or self-care (01) ==
LOC: HO.HSM 10:03
PROVIDERS: PCP Internal Medicine; Referring Provider Pediatrics; Visit Provider Registered Nurse
DX: G43.909 Migraine, unspecified, not intractable, without status migrainosus (principal); G44.209 Tension-type headache, unspecified, not intractable; G31.84 Mild cognitive impairment of uncertain or unknown etiology
CPT/HCPCS: 99214

== ENCOUNTER → 2025-03-16 10:03 | Outpatient (BNVA) | payer OTHER, SELFPAY | PROVIDERS: PCP Internal Medicine; Referring Provider Pediatrics; Visit Provider Registered Nurse | DX: G43.909 Migraine, unspecified, not intractable, without status migrainosus (principal); G44.209 Tension-type headache, unspecified, not intractable; G31.84 Mild cognitive impairment of uncertain or unknown etiology; Z79.899 Other long term (current) drug therapy | CPT/HCPCS: 99212 ==

== ENCOUNTER 2025-05-24 10:00 | Outpatient (REF) | payer OTHER, SELFPAY ==
--- OUTSIDE RECORDS SUMMARY | 2025-05-24 11:16 | XMS_ITS | Encounter Summary ---
Author Organization [facility] Address [address] [place] [address] Care Team Providers Care Milieu Manager Name Role Phone Mago Manriquez MD Primary Care Provider [phone] Encounter Details Date Type Department Care Team (Late st Contact Info) Description 10/28/2024 Lab Requisition [facility] - Main Lab 299 [facility] [place] [address] Julianne Pearce PA [address] [place], [place] [phone] Acute cystitis with hematuria Social History Tobacco [...] do you feel lonely or isolated from ose around you? Never 07/04/2024 Food Risk [...] for your loved ones. For example, child welfare manager or elderly care for an older adult? [...] Date Recorded What is your living situation? Unrecognized valu e 07/04/2024 Comments No Sex and Gender Information [...] Care Team (Late st Contact Info) Description 06/13/2025 9:30 AM EST Ancillary Procedure [facility] - [facility] [address] [employer] [address] [place] [phone] 08/15/2025 9:30 AM EST Office Visit Adult Medicine [address] [phone] Mago Manriquez MD [address] [place] [address] 10/10/2025 7:50 AM EDT Appointment Radiology Department - [address] [phone] documented as of this encounter Procedures Procedure Name Priority Date/Time Associated Diagnosis Comments CULTURE URINE Routine 10/28/2024 1:10 PM EDT Acute cystitis with hematuria documented in this encounter Results * (ABNORMAL) Culture urine (10/28/2024 1:10 PM EDT) Culture, Urine >100,000 CFU/mL Escherichia coli(A) ROSALVA 10/30/2024 8:22 AM EDT [facility] Urine Urine specimen obtained by clean [...] MICROBIOLOGY - GENERAL ORD ERABLES Final Result [facility] [address] [place] [address], documented in this encounter Visit Diagnoses Diagnosis Acute cystitis with hematuria documented in this encounter Additional Health Concerns Assessment Noted Time PHQ-9 Depression Total Score: 0 07/04/19 25 3:18 PM EST documented as of this encounter Care Teams Milieu Manager Relationship Specialty Start Date End Date Mago Manriquez MD [address] [place] [address] PCP - General Internal Medicine 05/14/24 documented as of this encounter
--- OUTSIDE RECORDS SUMMARY | 2025-05-24 11:16 | XMS_ITS | Encounter Summary ---
Author Organization [facility] Address [address] [place] [address] Care Team Providers Care Rectifying Operator Name Role Phone Mago Manriquez MD Primary Care Provider [phone] Encounter Details Date Type Department Care Team (Late st Contact Info) Description 01/10/2025 Lab Requisition [facility] - Main Lab 299 [facility] [place] [address] Poli Wayne MD [address] [facility] [address] [place] [address] Urinary tract infection, site not [...] for your loved ones. For example, child care associate teacher or elderly care for an older [...] your living situation? Unrecognized valu e 07/04/2024 Interpersonal Safety Answer Date Record ed Physical Abuse Unrecognized value 11/16/2024 Verbal Abuse Unrecognized value 11/16/2024 Comments No Sex and Gender Information [...] Description 06/13/2025 9:30 AM EST Ancillary Procedure [facility] - [address] [place] [address] 08/15/2025 9:30 AM EST Office Visit Adult Medicine [address] [phone] Mago Manriquez MD [address] [place] [address] 10/10/2025 7:50 AM EDT Appointment Radiology Department - [address] [phone] documented as of this encounter Procedures Procedure [...] morganii Trimethoprim/Sulfamethoxazo le ROSALVA <=20 ug/ml: Susceptible Poli Wayne MD LAB MICROBIOLOGY - GENERA L ORDERABLES Final Result [facility] [address] [place] [address], documented in this encounter Visit Diagnoses Diagnosis Urinary tract infection, site not specified Acute cystitis with hematuria documented in this encounter Additional Health Concerns Assessment Noted Time PHQ-9 Depression Total Score: 0 07/04/19 25 3:18 PM EST documented as of this encounter Care Teams Rectifying Operator Relationship Specialty Start Date End Date Mago Manriquez MD [address] [place], [place] PCP - General Internal Medicine 05/14/24 documented as of this encounter
--- OUTSIDE RECORDS SUMMARY | 2025-05-24 11:16 | XMS_ITS | Encounter Summary ---
Author Organization [facility] Address [address] [place] [address] Care Team Providers Care Business Intelligence Analyst Name Role Phone Mago Manriquez MD Primary Care Provider [phone] Encounter Details Date Type Department Care Team (Late st Contact Info) Description 11/23/2024 Lab Requisition [facility] - Main Lab 299 [facility] [place] [address] Poli Wayne MD [address] [place] [address] Acute cystitis with hematuria; Urinary [...] your loved ones. For example, child welfare counselor or elderly care for an older adult? [...] Description 06/13/2025 9:30 AM EST Ancillary Procedure [facility] - [address] [place] [address] 08/15/2025 9:30 AM EST Office Visit Adult Medicine [address] [phone] Mago Manriquez MD [address] [place] [address] 10/10/2025 7:50 AM EDT Appointment Radiology Department - [address] [phone] documented as of this encounter Procedures Procedure Name Priority Date/Time Associated Diagnosis Comments CULTURE URINE Routine 11/23/2024 10:00 AM EDT Acute cystitis with hematuria Urinary tract infection, site not specified documented in this encounter Results * (ABNORMAL) Culture urine (11/23/2024 10:00 AM EDT) Culture, Urine 50,000-100,000 CFU/mL Escherichia coli(A) ROSALVA 11/25/2024 11:05 AM EDT [facility] Urine [...] Escherichia coli Trimethoprim/Sulfamethoxazole ROSALVA <=20 ug/ml: Susceptible us Poli Wayne MD LAB MICROBIOLOGY - GENERA L ORDERABLES Final Result [facility] [address] [place] [address], documented in this encounter Visit Diagnoses Diagnosis Acute cystitis with hematuria Urinary tract infection, site not specified documented in this encounter Additional Health Concerns Assessment Noted Time PHQ-9 Depression Total Score: 0 07/04/19 25 3:18 PM EST documented as of this encounter Care Teams Business Intelligence Analyst Relationship Specialty Start Date End Date Mago Manriquez MD [address] [place], [place] PCP - General Internal Medicine 05/14/24 documented as of this encounter
--- OUTSIDE RECORDS SUMMARY | 2025-05-24 11:17 | XMS_ITS | Encounter Summary ---
Author Organization [facility] Address [address] [place] [address] Care Team Providers Care Process Planner Name Role Phone Mago Manriquez MD Primary Care Provider [phone] Encounter Details Date Type Department Care Team (Late st Contact Info) Description 04/29/2025 Results Follow-Up Adult Medicine [address] [phone] Usha Jurado PA [address] [place], [place] Social History Tobacco Use Types Packs/Day Years [...] for your loved ones. For example, rn progressive care unit or elderly care for an older adult? [...] Assessment Author No 05/14/2024 3:41 PM Danica Ortiz, RN * Are you blind or do [...] Description 06/13/2025 9:30 AM EST Ancillary Procedure [facility] - [facility] [address] [facility] [address] [place] [address] 08/15/2025 9:30 AM EST Office Visit Adult Medicine [address] [phone] Mago Manriquez MD [address] [place] [address] 10/10/2025 7:50 AM EDT Appointment Radiology Department - [address] [phone] documented as of this encounter Visit Diagnoses Not on filedocumented in this encounter Additional Health Concerns Assessment Noted Time PHQ-9 Depression Total Score: 0 07/04/19 25 3:18 PM EST documented as of this encounter Care Teams Process Planner Relationship Specialty Start Date End Date Mago Manriquez MD [address] [place] [address] PCP - General Internal Medicine 05/14/24 documented as of this encounter
--- OUTSIDE RECORDS SUMMARY | 2025-05-24 11:17 | XMS_ITS | Clinical Summary ---
Author Organization [facility] Address [address] [place] [address] Phone Care Team Providers Care Religion Instructor Name Role Phone Mago Manriquez MD Primary Care Provider [phone] Allergies Active Allergy Reactions Criticality Noted Date Comments Codeine Headache,Nausea And Vomiting,Other,Photosens itivity,Unknown Medium 07/17/2005 Other Reaction(s): Headaches Medications loratadine (CLARITIN) 10 mg tablet Take 1 tablet (10 mg total) by mouth 1 (one) time each day. 12/03/19 23 Active amitriptyline (ELAVIL) 10 mg tablet Take 1 tablet (10 mg total) by mouth at bedtime. 12/20/19 21 Active topiramate (TOPAMAX) 100 mg tablet at bedtime. 09/24/19 20 Active metFORMIN XR (GLUCOPHAGE-XR) 500 mg 24 hr tablet Take 1 tablet (500 mg total) by mouth 1 (one) time each day. Do not crush, chew, or split. 90 each 1 01/14/20 25 Active lisinopriL (PRINIVIL,ZESTRIL) 5 mg tablet Take 1 tablet (5 mg total) by mouth at bedtime. 90 tablet 04/12/20 25 Active Additional Information Patient taking differently:5 mg oralEvery morning, Reported on 05/10/2025 estradioL (ESTRACE) 0.01 % (0.1 mg/gram) vaginal cream USE ONE GRAM VAGINALLY THREE TIMES PER WEEK 11/24/19 25 Active dulaglutide (TRULICITY) 1.5 mg/0.5 mL pen injector injectionIndicatio ns:Type 2 diabetes mellitus with diabetic microalbuminuria, without long-term current use of insulin ([facility] V24, [facility] V28) Inject 0.5 mL (1.5 mg total) under the skin every 7 (seven) days. 6 mL 04/11/20 25 Active cetirizine (ZyrTEC) 10 mg tablet Take 1 tablet (10 mg total) by mouth 1 (one) time each day. 90 each 1 05/05/20 25 Active fluticasone propionate (FLONASE) 50 mcg/actuation nasal spray Administer 1 spray into each nostril 2 (two) times a day. 47 g 1 05/05/20 25 Active rosuvastatin (CRESTOR) 5 mg tabletIndications: Other chest pain,Family history of premature CAD,Type 2 diabetes mellitus with diabetic microalbuminuria, without long-term current use of insulin ([facility] V24, [facility] V28),Rotator cuff tendinitis, left,Bilateral carpal tunnel syndrome,Diabetes mellitus type 2 with neurological manifestations ([facility] V24, [facility] V28),Elevated LFTs,Hyperlipidemi a LDL goal <70 Take 1 tablet (5 mg total) by mouth 1 (one) time each day. 30 each 05/10/20 25 026 Active fluticasone propionate (FLONASE) 50 mcg/actuation nasal spray Administer 1 spray into affected nostril(s) 2 (two) times a day. 03/12/20 24 025 Discontinu ed(Reorder ) naproxen (NAPROSYN) 500 mg tablet Take 1 tablet (500 mg total) by mouth 2 (two) times a day with meals for 7 days. 14 each 05/05/20 25 025 Active Problems Problem Noted Date Diagnosed Date Other chest pain 05/10/2025 Family history of premature CAD 05/10/2025 Diabetes mellitus type 2 wit h neurological manifestations ([facility] V24, [facility] V28) 06/06/2024 Elevated LFTs 03/12/2023 Severe obesity (BMI 35.0-39. 9) with comorbidity ([facility] V24, [facility] V28) 04/15/2022 Hemorrhoids 12/17/2021 Microalbuminuria 12/14/2021 Trigger finger, right middle finger 11/09/2021 Rotator cuff tendinitis, left 11/09/2021 Acute recurrent cystitis 04/23/2021 Overview (05/04/2024): [facility] urology JOSE (obstructive sleep apnea) 04/25/2017 Uses hearing aid 06/26/2015 Migraines 09/19/2014 DM (diabetes mellitus), type 2 with renal complications ([facility] V24, [facility] V28) 05/31/2013 BPPV (benign paroxysmal positional vertigo) 10/22 Allergic rhinitis 11/25/2005 Bilateral carpal tunnel syndrome 10/16/2005 History of kidney stones Hyperlipidemia LDL goal <70 Resolved Problems Problem Noted Date Diagnosed Date Resolved Date Hypertensive disorder 09/18/20102023 Encounters Date Type Department Care Team Description 05/10/2025 9:20 AM EST Office Visit [facility] - [facility] [address] [place] [address] Kiel Ramirez MD Other chest pain (Primary Dx); Family history of premature CAD; Type 2 diabetes mellitus with diabetic microalbuminuria, without long-term current use of insulin ([facility] V24, [facility] V28); Rotator cuff tendinitis, left; Bilateral carpal tunnel syndrome; Diabetes mellitus type 2 with neurological manifestations ([facility] V24, [facility] V28); Elevated LFTs; Hyperlipidemia LDL goal <70 05/05/2025 10:00 AM EST Office Visit Adult Medicine [address] [phone] Usha Jurado PA Sinus congestion (Primary Dx) 04/29/2025 Results Follow-Up [address] [phone] Usha Jurado PA 04/22/2025 11:20 AM EDT Lab Draw Station [address] [phone] JOSE (obstructive sleep apnea); Severe obesity (BMI 35.0-39.9) with comorbidity ([facility] V24, [facility] V28); Microalbuminuria; Type 2 diabetes mellitus with diabetic microalbuminuria, without long-term current use of insulin ([facility] V24, [facility] V28); Diabetes mellitus type 2 with neurological manifestations ([facility] V24, [facility] V28) 04/11/2025 11:00 AM EDT Office Visit Adult Medicine [address] [phone] Usha Jurado PA Type 2 diabetes mellitus with diabetic microalbuminuria, without long-term current use of insulin ([facility] V24, [facility] V28) (Primary Dx); JOSE (obstructive sleep apnea); Severe obesity (BMI 35.0-39.9) with comorbidity ([facility] V24, [facility] V28); Microalbuminuria; Diabetes mellitus type 2 with neurological manifestations ([facility] V24, [facility] V28) from Last 3 Months Immunizations Immunization Administration Dates Next Due Influenza Quadravalent, MDCK [...] hearing aid 06/26/2015 Acute recurrent cystitis 04/23/2021 [facility] urology History of kidney stones 04/23/2021 Microalbuminuria 12/14/2021 Hyperlipidemia Elevated liver enzymes DM (diabetes mellitus), type 2 with renal complications ([facility] V24, [facility] V28) 05/31/2013 Hemorrhoids 12/17/2021 Severe obesity (BMI 35.0-39. 9) with comorbidity ([facility] V24, [facility] V28) 04/15/2022 Migraines 09/19/2014 JOSE (obstructive sleep apnea) 04/25/2017 Trigger finger, right middle finger 11/09/2021 Allergic rhinitis 11/25/2005 Diabetes mellitus type 2 wit h neurological manifestations ([facility] V24, [facility] V28) 06/06/2024 Migraine GERD (gastroesophageal reflux disease) Head injury Fall Family History Medical History Relation Name Comments [...] Not Answered Alcohol Use Standard Drinks/Week Comments Not Currently 0 (1 standard drink = 0.6 oz [...] Record ed Within the last 3 months, ho w many times did you visit the [...] care for your loved ones. For example, children's tutor nursery or elderly care for an older adult? [...] M CS-Un spec Spinal Livin g Rafal Lo ncus Delivery Location:[facility] Comments:C/S breech pr esentation 2006 Term 39w 0d 3657 g (129 oz) M CS-Un spec Spinal Livin g Slade Lora s Delivery Location:[facility] Last Filed Vital Signs Vital Sign Reading Time Taken Comments Blood Pressure 121/70 05/10/2025 9:21 AM EST Pulse 69 05/10/2025 9:21 AM EST Temperature 36.7 C (98 F) 05/05/2025 9:54 AM EST Respiratory Rate 15 05/05/2025 9:54 AM EST Oxygen Saturation 96% 05/10/2025 9:21 AM EST Inhaled Oxygen Concentration - - Weight 78.5 kg (173 lb) 05/10/2025 9:21 AM EST Height 152.4 cm (5') 05/10/2025 9:21 AM EST Body Mass Index 33.79 05/10/2025 9:21 AM EST Plan of Treatment Upcoming Encounters Date Type Department Care Team (Late st Contact Info) Description 06/13/2025 9:30 AM EST Ancillary Procedure [facility] - [address] [phone] 08/15/2025 9:30 AM EST Office Visit [facility] - [address] [phone] Mago Manriquez MD [address], [place] 10/10/2025 7:50 AM EDT Appointment Radiology Department - [address] [phone] Health Maintenance Due Date Last Done Comments Diabetes: Annual Foot Exam 01/29/1976 Diabetes: Annual Retina Eye Exam 01/29/1976 Hepatitis B Vaccines (1 of 3 - 19+ 3-dose series) 1985 RSV Immunization Adult Patients (1 - Risk 50-74 years 1-dose series) 01/29/2016 Pneumococcal Vaccine: 50+ Years (2 of 2 - PCV) 12/13/2022 12/13/2021 COVID-19 Vaccine (2 - 2024- season) 2025 08/19/2020, 07/22/2020 Influenza Vaccine (#1) 2025 , 05/05/2023, 04/15/2022, Additional history exists Social Influencers of Health Screening 07/04/2025 07/04/2024 Diabetes: Blood Sugar Control Test (HGBA1C) 10/20/2025 04/22/2025, 01/13/2025, 10/14/2024, Additional history exists Diabetes: Annual Urine Albumin-Creatinine Ratio (uACR) 04/22/2026 04/22/2025, 10/14/2024, 01/30/2024 Diabetes: Annual GFR (Glomerular Filtration Rate) 04/22/2026 04/22/2025, 10/14/2024, 05/14/2024, Additional history exists Hypertension/CHF/CAD Annual BMP Blood Test 04/22/2026 04/22/2025, 10/14/2024, 05/14/2024, Additional history exists Breast Cancer Screening 10/05/2026 10/06/19 25, 06/06/2023, 05/01/2022, Additional history exists Cervical Cancer Screening: HPV 07/06/2029 07/06/2024, 07/02/2018 Cholesterol Screening (Lipid Panel) 04/22/2030 04/22/2025, 10/14/2024, 04/30/2024, Additional history exists DTaP,Tdap,and Td Vaccines (5 - Td or Tdap) 12/14/2031 12/13/2021, 12/04/2010, 12/03/2000, Additional history exists Colorectal Cancer Screening: Colonoscopy 11/16/2034 11/16/2024 HIV Screening Completed 10/27/2006 Hepatitis C Screening [...] Procedure Name Priority Date/Time Associated Diagnosis Comments ECG 12-LEAD Routine 05/10/2025 9:26 AM EST Other chest pain COMPLETE BLOOD COUNT Routine 04/22/2025 11:33 AM EDT JOSE (obstructive sleep apnea) Severe obesity (BMI 35.0-39.9) with comorbidity ([facility] V24, [facility] V28) Microalbuminuria Type 2 diabetes mellitus with diabetic microalbuminuria, without long-term current use of insulin ([facility] V24, [facility] V28) Diabetes mellitus type 2 with neurological manifestations ([facility] V24, [facility] V28) HEMOGLOBIN A1C Routine 04/22/2025 11:33 AM EDT JOSE (obstructive sleep apnea) Severe obesity (BMI 35.0-39.9) with comorbidity (CMS/HCC V24, CMS/HCC V28) Microalbuminuria Type 2 diabetes mellitus with diabetic microalbuminuria, without long-term current use of insulin (CMS/HCC V24, CMS/HCC V28) Diabetes mellitus type 2 with neurological manifestations (CMS/HCC V24, CMS/HCC V28) LIPID PANEL WITH REFLEX TO DIRECT LDL Routine 04/22/2025 11:33 AM EDT JOSE (obstructive sleep apnea) Severe obesity (BMI 35.0-39.9) with comorbidity (CMS/HCC V24, CMS/HCC V28) Microalbuminuria Type 2 diabetes mellitus with diabetic microalbuminuria, without long-term current use of insulin (CMS/HCC V24, CMS/HCC V28) Diabetes mellitus type 2 with neurological manifestations ([facility] V24, [facility] V28) MICROALBUMIN CREATININE URINE RATIO Routine 04/22/2025 11:33 AM EDT JOSE (obstructive sleep apnea) Severe obesity (BMI 35.0-39.9) with comorbidity (CMS/HCC V24, CMS/HCC V28) Microalbuminuria Type 2 diabetes mellitus with diabetic microalbuminuria, without long-term current use of insulin (CMS/HCC V24, CMS/HCC V28) Diabetes mellitus type 2 with neurological manifestations (CMS/HCC V24, CMS/HCC V28) COMPREHENSIVE METABOLIC PANEL Routine 04/22/2025 11:33 AM EDT JOSE (obstructive sleep apnea) Severe obesity (BMI 35.0-39.9) with comorbidity (CMS/HCC V24, CMS/HCC V28) Microalbuminuria Type 2 diabetes mellitus with diabetic microalbuminuria, without long-term current use of insulin ([facility] V24, CMS/HCC V28) Diabetes mellitus type 2 with neurological manifestations (CMS/HCC V24, CMS/HCC V28) COLONOSCOPY Routine 11/16/2024 10:37 AM EDT Colon cancer screening MG MAMMO DIGITAL SCREENING W CONRADO BILAT Routine 10/05/2024 8:16 AM EDT Encounter for screening mammogram for breast cancer HPV WITH REFLEX GENOTYPE Routine 07/06/2024 9:12 AM EST Encounter for gynecological examination without abnormal finding from Last 3 Months or Most Recently Relevant to Health Maintenance Results * ECG 12 lead (05/10/2025 9:26 AM EST) Ventricular Rate ECG 69 BPM GEMUSE Atrial Rate 69 BPM GEMUSE P-R Interval 156 ms GEMUSE QRS Duration 84 ms GEMUSE Q-T Interval 396 ms GEMUSE QTc 424 ms GEMUSE P Wave [place] 37 degrees GEMUSE R [place] 65 degrees GEMUSE T [place] 86 degrees GEMUSE ECG Interpretation Normal sinus rhythm Nonspecific T wave abnormality Abnormal ECG When compared with ECG of 14-MAY-2024 16:19, No significant change was found Confirmed by Angelina RAMIREZ, KIEL ([id number]) on 05/10/2025 9:58:51 AM GEMUSE 05/10/2025 9:26 AM EST 05/10/2025 9:58 AM EST us Kiel Ramirez MD ECG ORDERABLES Final Result GEMUSE * (ABNORMAL) Lipid panel with reflex to direct LDL (04/22/2025 11:33 AM EDT) Cholesterol 179 0 - 200 mg/dL LAB CHEMISTRY METHOD 04/22/2025 3:[address] [facility] Triglycerides 124 0 - 150 mg/dL LAB CHEMISTRY METHOD 04/22/2025 3:[address] [facility] HDL 50 >=40 mg/dL LAB CHEMISTRY METHOD 04/22/2025 3:[address] [facility] LDL Calculated 104(H) 0 - 100 mg/dL LAB CHEMISTRY METHOD 04/22/2025 3:[address] [facility] Comment:Estimated LDL Calcul ated using equation: Total cholesterol - HDL cholesterol - (Triglycerides/5) VLDL Cholesterol Kj 24.8 mg/dL LAB CHEMISTRY METHOD 04/22/2025 3:[address] [facility] Non HDL Chol. (LDL+VLDL) 129 <145 mg/dL LAB CHEMISTRY METHOD 04/22/2025 3:[address] [facility] Chol/HDL Ratio 3.6 0.0 - 4.4 LAB CHEMISTRY METHOD 04/22/2025 3:[address] [facility] Blood Venous blood specimen / Unknown Venipuncture / Unknown 04/22/2025 11:33 AM EDT 04/22/2025 11:33 AM EDT us Usha DO LAB BLOOD ORDERABLES Final Re sult Performing Organization Address City/[facility]/ZIP Co de Phone Number [facility] [address] [place] [address], [place] [phone] * (ABNORMAL) Microalbumin creatinine urine ratio (04/22/2025 11:33 AM EDT) Creatinine, Urine 133.0 mg/dL LAB CHEMISTRY METHOD 04/22/2025 4:[address] [facility] Microalb, Ur 100.0(H) 0.0 - 29.0 mg/L LAB CHEMISTRY METHOD 04/22/2025 4:[address] [facility] Microalb/Crea t Ratio 75(H) <30 mg/g creat LAB CHEMISTRY METHOD 04/22/2025 4:[address] [facility] Urine Urine specimen obtained by clean catch procedure / Unknown Non-blood Collection / Unknown 04/22/2025 11:33 AM EDT 04/22/2025 11:33 AM EDT us Usha DO LAB URINE ORDERABLES Final Re sult Performing Organization Address City/[facility]/ZIP Co de Phone Number [facility] [address] [place] [address], * (ABNORMAL) Complete blood count (04/22/2025 11:33 AM EDT) [facility] WBC 7.0 4.8 - 10.8 K/mcL LAB HEMETOLOGY METHOD 04/22/2025 2:[address] [facility] RBC 5.10(H) 3.80 - 4.80 M/mcL LAB HEMETOLOGY METHOD 04/22/2025 2:[address] [facility] Hemoglobin 15.2 11.5 - 16.0 g/dL LAB HEMETOLOGY METHOD 04/22/2025 2:[address] [facility] Hematocrit 45.9 35.0 - 47.0 % LAB HEMETOLOGY METHOD 04/22/2025 2:[address] [facility] MCV 89.5 79.0 - 98.0 FL LAB HEMETOLOGY METHOD 04/22/2025 2:[address] [facility] MCH 29.6 27.0 - 32.0 pcg LAB HEMETOLOGY METHOD 04/22/2025 2:[address] [facility] MCHC 33.1 32.0 - 37.0 g/dL LAB HEMETOLOGY METHOD 04/22/2025 2:[address] [facility] RDW 13.1 11.0 - 15.0 % LAB HEMETOLOGY METHOD 04/22/2025 2:[address] [facility] Platelets 244 130 - 400 K/mcL LAB HEMETOLOGY METHOD 04/22/2025 2:[address] [facility] MPV 11.3(H) 7.0 - 11.0 FL LAB HEMETOLOGY METHOD 04/22/2025 2:[address] [facility] NRBC 0.0 <1.0 % LAB HEMETOLOGY METHOD 04/22/2025 2:[address] [facility] NRBC Absolute 0.00 <0.10 K/[facility] LAB HEMETOLOGY METHOD 04/22/2025 2:[address] [facility] Blood Venous blood specimen / Unknown Venipuncture / Unknown 04/22/2025 11:33 AM EDT 04/22/2025 11:33 AM EDT us Usha DO LAB BLOOD ORDERABLES Final Re sult Performing Organization Address [facility]/ZIP Co de Phone Number [facility] [address] [place] [address], [place] [phone] * Hemoglobin A1c (04/22/2025 11:33 AM EDT) Hemoglobin A1C 6.1 <6.5 % LAB CHEMISTRY METHOD 04/22/2025 4:[address] [facility] Mean Bld Glu Estim. 128 mg/dL LAB CHEMISTRY METHOD 04/22/2025 4:[address] [facility] Blood Venous blood specimen / Unknown Venipuncture / Unknown 04/22/2025 11:33 AM EDT 04/22/2025 11:33 AM EDT us Usha DO LAB BLOOD ORDERABLES Final Re sult Performing Organization Address City/[facility]/ZIP Co de Phone Number [facility] [address] [place] [address], [place] [phone] * (ABNORMAL) Comprehensive metabolic panel (04/22/2025 11:33 AM EDT) Sodium 138 133 - 145 mmol/L LAB CHEMISTRY METHOD 04/22/2025 3:[address] [facility] Potassium 3.9 3.5 - 5.5 mmol/L LAB CHEMISTRY METHOD 04/22/2025 3:[address] [facility] Chloride 107 96 - 110 mmol/L LAB CHEMISTRY METHOD 04/22/2025 3:[address] [facility] CO2 24 21 - 32 mmol/L LAB CHEMISTRY METHOD 04/22/2025 3:[address] [facility] Anion Gap 7 3 - 11 LAB CHEMISTRY METHOD 04/22/2025 3:[address] [facility] Glucose 110(H) 70 - 100 mg/dL LAB CHEMISTRY METHOD 04/22/2025 3:[address] [facility] BUN 20 5 - 25 mg/dL LAB CHEMISTRY METHOD 04/22/2025 3:[address] [facility] Creatinine 0.96 0.50 - 1.10 mg/dL LAB CHEMISTRY METHOD 04/22/2025 3:[address] [facility] eGFR 68 >=60 mL/min/1. 73m2 LAB CHEMISTRY METHOD 04/22/2025 3:[address] [facility] Comment:Calculation based on the Chronic Kidney Disease Epidemiology Collaboration (CKD-EPI) equation refit without adjustment for race. BUN/Creatinine Ratio 20.8 LAB CHEMISTRY METHOD 04/22/2025 3:[address] [facility] Calcium 9.9 8.5 - 10.5 mg/dL LAB CHEMISTRY METHOD 04/22/2025 3:[address] [facility] AST (SGOT) 25 10 - 42 unit/L LAB CHEMISTRY METHOD 04/22/2025 3:[address] [facility] ALT (SGPT) 51 10 - 60 unit/L LAB CHEMISTRY METHOD 04/22/2025 3:[address] [facility] Alkaline Phosphatase 110 42 - 121 unit/L LAB CHEMISTRY METHOD 04/22/2025 3:[address] [facility] Total Protein 7.5 6.0 - 8.0 g/dL LAB CHEMISTRY METHOD 04/22/2025 3:[address] [facility] Albumin 4.0 3.2 - 5.0 g/dL LAB CHEMISTRY METHOD 04/22/2025 3:[address] [facility] Total Bilirubin 0.4 0.0 - 1.4 mg/dL LAB CHEMISTRY METHOD 04/22/2025 3:[address] [facility] Blood Venous blood specimen / Unknown Venipuncture / Unknown 04/22/2025 11:33 AM EDT 04/22/2025 11:33 AM EDT us Usha DO LAB BLOOD ORDERABLES Final Re sult [facility] [address] [place] [address], * COLONOSCOPY Anesthesia - MAC; [facility] ENDOSCOPY (11/16/2024 10:37 AM EDT) Anatomical Region [...] for surveillance. Narrative 11/16/2024 10:32 AM EDT [facility] Patient Name: Jorge Becerra Procedure Date: 11/16/2024 10:14 AM Date of [...] verified by the physician, the nurse, the proctologist and the traffic signal technician in the pre-procedure area in the [...] without abnormality. Procedure Code(s): --- Professional --- 91306, Colonoscopy, flexible; with biopsy, single or multiple Diagnosis Code(s): --- Professional --- D12.2, Benign neoplasm of ascending colon CPT copyright 2020 [employer]. All rights reserved. The codes documented in this report are preliminary and upon real estate management specialist review may be revised to meet current compliance requirements. Waldemar Perez MD 11/16/2024 10:32:10 AM This report has been signed electronically.Waldemar Perez MD Number of Addenda: 0 Note Initiated On: 11/16/2024 10:14 AM Scope Withdrawal Time: 0 hours 6 minutes 23 seconds Scope In: 10:19:32 AM Scope Out: 10:30:44 AM Endoscopy Department at [facility] - [address] [place] [phone] Procedure Note Waldemar Perez MD - 11/16/2024 [facility] Patient Name: Jorge Becerra Procedure Date: 11/16/2024 10:14 AM Date of [...] the physician, the nurse, theanesthetist and the traffic signal technician in the pre-procedure area in the [...] without abnormality. Procedure Code(s): --- Professional --- 22510, Colonoscopy, flexible; with biopsy, singleor multiple Diagnosis Code(s): --- Professional --- D12.2, Benign neoplasm of ascending colon CPT copyright 2020 [employer]. All rights reserved. The codes documented in this report are preliminary and upon real estate management specialist reviewmay be revised to meet current compliance requirements. Waldemar Perez MD 11/16/2024 10:32:10 AM This report has been signed electronically.Waldemar Perez MD Number of Addenda: 0 Note Initiated On: 11/16/2024 10:14 AM Scope Withdrawal Time: 0 hours 6 minutes 23 seconds Scope In: 10:19:32 AM Scope Out: 10:30:44 AM Endoscopy Department at [facility] - [address] [place] [phone] IMPRESSION: - One diminutive polyp in the ascending colon, removed with a jumbo cold forceps. Resected andretrieved. - Internal hemorrhoids. - The examination was otherwise normal. Recommendation: - Discharge patient to home. - Await pathology results. - Repeat colonoscopy in 10 years forsurveillance. Waldemar Huertalu MD GI~PROCEDURE ORDERABLES Fin al Result * MG Mammo Digital Screening w Conrado bilat (10/05/2024 8:16 AM EDT) Anatomical Region Laterality Modality Breast Bilateral Mammography 10/05/2024 1:35 PM EDT Impressions 10/05/2024 1:39 PM EDT Benign. BI-RADS CATEGORY: 1 - NEGATIVE RECOMMENDATION: Screening bilateral mammogram is recommended in 1 year. Mammo Location: [facility], [address] [place] [address], [id number], . -------- FINAL REPORT -------- Dictated By: Cher Cain Dictated Date: 10/05/2024 13:35 ET Assigned Physician: Cher Cain Reviewed and Electronically Signed By: Cher Cain Signed Date: 10/05/2024 13:39 ET Workstation ID: [id number] Transcribed By: Self Edit Transcribed Date: 10/05/2024 [...] is recommended in 1 year. Mammo Location: [facility], [address] [place] [address], [id number], . -------- FINAL REPORT -------- Dictated By: Cher Cain Dictated Date: 10/05/2024 13:35 ET Assigned Physician: Cher Cain Reviewed and Electronically Signed By: Cher Cain Signed Date: 10/05/2024 13:39 ET Workstation ID: [id number] Transcribed By: Self Edit Transcribed Date: 10/05/2024 13:35 ET Mago Manriquez MD IMG BI PROCEDURES Final Result * HPV with reflex genotype (07/06/2024 9:12 AM EST) HPV Negative Negative LAB MICROBIOLOGY METHOD 07/07/2024 1:[address] [facility] Brushing/Spatula Cervix uteri structure / Unknown 07/06/2024 9:12 AM EST 07/07/2024 6:09 AM EST Christina Phillips CNM LAB MOLECULAR DIAGNOSTICS ANNA NIETO Final Result [facility] [address] [place] [address], from Last 3 Months or Most Recently Relevant to Health Maintenance Insurance [employer] Care Teams Religion Instructor Relationship Specialty Start Date End Date Mago Manriquez MD [address] [place] [id number] PCP - General Internal Medicine 05/14/24
--- NOTE | 2025-05-24 11:24 | MHC.AU.HA3 ---
Hearing Instrument Follow-Up- Binaural Date of Visit: 05/24/25 Right Ear: Make, Model, Color, Serial Number: Oticon Real 2 miniRITE-R SN: [id number] Color: Chroma beige Software Quality Automation Engineer Repair Warranty: 02/21/2027 Software Quality Automation Engineer Loss and Damage Warranty: 02/21/2027 [facility] Service Plan: 02/05/2025 Battery Size: Rechargeable Process Control Supervisor/Slim Tube: 2/85 Earmold/Dome/CShell/SlimTip:RITE mold hard minifit MicroMold SN: [id number] Warranty 09/15/2024 Type of Wax Guard: ProWax on EM; miniFit on Process Control Supervisor Dispensed By: [facility] Date of Fittin02/06/2024 Left Ear: Make, Model, Color, Serial Number: Oticon Real 2 miniRITE-R SN: [id number] Color: Chroma beige Software Quality Automation Engineer Repair Warranty: 02/21/2027 Software Quality Automation Engineer Loss and Damage Warranty: 02/21/2027 [facility] Service Plan: 02/05/2025 Battery Size: Rechargeable Process Control Supervisor/Slim Tube: 2/85 Earmold/Dome/CShell/SlimTip: RITE mold hard minifit SN: [id number] Warranty 09/15/2024 Type of Wax Guard: ProWax on EM; miniFit on Process Control Supervisor Dispensed By: [facility] Date of Fittin02/06/2024 Follow-Up Summary: Reported right ARTHUR fell on hard, kitchen floor. Since then, it has been muffled/distorted. Confirmed via listening check. Resolved with new it intern. Cleaned both HAs (2). Cleaned EMs (2). Replaced all wax guards (2). [id number] x6. Replaced right it intern. Vacuumed microphones. Ran through [employer]. Updated firmware. Listening check demonstrated HAs amplifying clearly. Recommendations: Hearing instrument follow-up or maintenance as needed. Please contact our clinic with any questions or concerns. Diagnosis Code(s): Primary Diagnosis: H90.3 Bilateral Sensorineural Hearing Loss Signature: Provider: Sherif Edwards, [facility]
== END 2025-05-24 10:01 | disposition home or self-care (01) ==
LOC: HO.HAP 10:00
PROVIDERS: Visit Provider Internal Medicine
DX: H90.3 Sensorineural hearing loss, bilateral (principal)
CPT/HCPCS: 92593; 99499